=== PATIENT | male | born 1960 | race Caucasian/White ===

== ENCOUNTER 2019-02-23 06:26 | Inpatient (IN) | payer BC, OTHER ==
[2019-02-23] MEDS ORDERED: FUROSEMIDE 10 MG/ML 4 ML VIAL IV STA (07:25)
[2019-02-23] MEDS ORDERED: IPRATROPIUM-ALBUTEROL 3 ML NEB INHALATION STA (07:25)
--- NOTE | 2019-02-23 07:30 | ED ---
SOB HPI - General Chief Complaint: Shortness of Breath Stated Complaint: CHF symptoms Time Seen by Provider: 02/23/19 07:00 Source: patient, RN notes reviewed Mode of arrival: ambulatory Limitations: no limitations - History of Present Illness Initial Comments: This is a 59-year-old male with a history of CHF who is a smoker who just quit 3 weeks ago also history of A. fib who states that he's been having progressively worsening shortness of breath over some time he is not had medications for a couple years nor insurance. He denies any chest pain fevers chills nausea vomiting sweats he has a slight cough with green minimal phlegm-like congestion. He has had lower extremity edema which is getting worse. He denies any palpitations or any other symptoms at this time. MD Complaint: shortness of breath - Related Data Home Medications Medication Instructions Recorded Confirmed Aspirin EC [Ecotrin] 325 mg PO DAILY 02/23/19 02/23/19 Allergies Allergy/AdvReac Type Severity Reaction Status Date / Time No Known Allergies Allergy Verified 02/23/19 07:21 Review of Systems ROS Statement: Those systems with pertinent positive or pertinent negative responses have been documented in the HPI. ROS Other: All systems not noted in ROS Statement are negative. Past Medical History Past Medical History: Atrial Fibrillation, Heart Failure Additional Past Medical History / Comment(s): pneumonia, 07-01-14 NEW ONSET A-FIB History of Any Multi-Drug Resistant Organisms: None Reported Past Surgical History: Appendectomy, Heart Catheterization, Hernia Repair Additional Past Surgical History / Comment(s): HAD HERNIA REPAIR(ABD) Past Anesthesia/Blood Transfusion Reactions: No Reported Reaction Past Psychological History: No Psychological Hx Reported Smoking Status: Current every day smoker Past Alcohol Use History: Occasional Past Drug Use History: None Reported - Past Family History Father Family Medical History: Diabetes Mellitus Additional Family Medical History / Comment(s): DAD IS 76 Mother Additional Family Medical History / Comment(s): AGE 74 HX UNK General Exam - General Exam Comments Initial Comments: This is a well-developed well-nourished awake alert oriented 3 male Limitations: no limitations General appearance: alert, in no apparent distress Head exam: Present: atraumatic, normocephalic, normal inspection Eye exam: Present: normal appearance, PERRL, EOMI. Absent: scleral icterus, conjunctival injection, periorbital swelling ENT exam: Present: normal exam, mucous membranes moist Neck exam: Present: normal inspection, full ROM, other (No stridor JVD or bruits). Absent: tenderness, meningismus, lymphadenopathy Respiratory exam: Present: normal lung sounds bilaterally. Absent: respiratory distress, wheezes, rales, rhonchi, stridor Cardiovascular Exam: Present: tachycardia, irregular rhythm. Absent: systolic murmur, diastolic murmur, rubs, gallop, clicks GI/Abdominal exam: Present: soft, normal bowel sounds. Absent: distended, tenderness, guarding, rebound, rigid Extremities exam: Present: full ROM, normal capillary refill, pedal edema. Absent: tenderness, joint swelling, calf tenderness Back exam: Present: normal inspection Neurological exam: Present: alert, oriented X3, CN II-XII intact Psychiatric exam: Present: normal affect, normal mood Skin exam: Present: warm, dry, intact, normal color. Absent: rash Course Vital Signs 02/23/19 02/23/19 02/23/19 06:32 07:00 07:40 Temperature 97.9 F Pulse Rate 117 H 104 H 108 H Respiratory 22 19 Rate Blood Pressure 174/126 155/125 O2 Sat by Pulse 98 Oximetry 02/23/19 02/23/19 02/23/19 07:47 08:00 09:30 Temperature Pulse Rate 102 H 107 H Respiratory 20 Rate Blood Pressure 160/120 135/116 O2 Sat by Pulse Oximetry 02/23/19 02/23/19 10:30 11:00 Temperature Pulse Rate 91 Respiratory 18 Rate Blood Pressure 153/106 149/101 O2 Sat by Pulse 98 Oximetry - Reevaluation(s) Reevaluation #1: 02/23/19 11:11 Reevaluation the patient after initial treatment reveals some improvement after the nebulizer treatment he is diuresing well after IV Lasix. He still has minimal improvement thus far. Medical Decision Making - Medical Decision Making I did discuss the case with the patient he does demonstrate rapid atrial fibrillation with congestive heart failure and pleural effusions. I did discuss case also with Dr Ray - Lab Data Result diagrams: 02/23/19 07:02 02/23/19 07:02 Lab Results 02/23/19 02/23/19 02/23/19 Range/Units 07:02 07:02 07:02 WBC 6.9 (3.8-10.6) k/uL RBC 5.99 H (4.30-5.90) m/uL Hgb 16.7 (13.0-17.5) gm/dL Hct 54.4 H (39.0-53.0) % MCV 90.9 (80.0-100.0) fL MCH 27.8 (25.0-35.0) pg MCHC 30.6 L (31.0-37.0) g/dL RDW 13.7 (11.5-15.5) % Plt Count 176 (150-450) k/uL Neutrophils % 49 % Lymphocytes % 36 % Monocytes % 9 % Eosinophils % 2 % Basophils % 1 % Neutrophils # 3.3 (1.3-7.7) k/uL Lymphocytes # 2.5 (1.0-4.8) k/uL Monocytes # 0.6 (0-1.0) k/uL Eosinophils # 0.2 (0-0.7) k/uL Basophils # 0.1 (0-0.2) k/uL PT (9.0-12.0) sec INR (<1.2) APTT (22.0-30.0) sec Sodium 141 (137-145) mmol/L Potassium 3.9 (3.5-5.1) mmol/L Chloride 107 (98-107) mmol/L Carbon Dioxide 27 (22-30) mmol/L Anion Gap 7 mmol/L BUN 26 H (9-20) mg/dL Creatinine 0.94 (0.66-1.25) mg/dL Est GFR (CKD-EPI)AfAm >90 (>60 ml/min/1.73 sqM) Est GFR (CKD-EPI)NonAf 89 (>60 ml/min/1.73 sqM) Glucose 72 L (74-99) mg/dL Calcium 8.9 (8.4-10.2) mg/dL Magnesium 1.6 (1.6-2.3) mg/dL Total Bilirubin 1.3 (0.2-1.3) mg/dL AST 41 (17-59) U/L ALT 38 (21-72) U/L Alkaline Phosphatase 68 (38-126) U/L Creatine Kinase 60 (55-170) U/L Troponin I (0.000-0.034) ng/mL NT-Pro-B Natriuret Pep 5640 pg/mL Total Protein 6.0 L (6.3-8.2) g/dL Albumin 3.5 (3.5-5.0) g/dL 02/23/19 02/23/19 Range/Units 07:02 07:02 WBC (3.8-10.6) k/uL RBC (4.30-5.90) m/uL Hgb (13.0-17.5) gm/dL Hct (39.0-53.0) % MCV (80.0-100.0) fL MCH (25.0-35.0) pg MCHC (31.0-37.0) g/dL RDW (11.5-15.5) % Plt Count (150-450) k/uL Neutrophils % % Lymphocytes % % Monocytes % % Eosinophils % % Basophils % % Neutrophils # (1.3-7.7) k/uL Lymphocytes # (1.0-4.8) k/uL Monocytes # (0-1.0) k/uL Eosinophils # (0-0.7) k/uL Basophils # (0-0.2) k/uL PT 12.5 H (9.0-12.0) sec INR 1.2 H (<1.2) APTT 26.2 (22.0-30.0) sec Sodium (137-145) mmol/L Potassium (3.5-5.1) mmol/L Chloride (98-107) mmol/L Carbon Dioxide (22-30) mmol/L Anion Gap mmol/L BUN (9-20) mg/dL Creatinine (0.66-1.25) mg/dL Est GFR (CKD-EPI)AfAm (>60 ml/min/1.73 sqM) Est GFR (CKD-EPI)NonAf (>60 ml/min/1.73 sqM) Glucose (74-99) mg/dL Calcium (8.4-10.2) mg/dL Magnesium (1.6-2.3) mg/dL Total Bilirubin (0.2-1.3) mg/dL AST (17-59) U/L ALT (21-72) U/L Alkaline Phosphatase (38-126) U/L Creatine Kinase (55-170) U/L Troponin I 0.016 (0.000-0.034) ng/mL NT-Pro-B Natriuret Pep pg/mL Total Protein (6.3-8.2) g/dL Albumin (3.5-5.0) g/dL - EKG Data -: EKG Interpreted by Me (Atrial fibrillation with a rapid ventricular response rate of 112 QRS 96 QT) - Radiology Data Radiology results: report reviewed (I did review the imaging and report is evidence of CHF and pleural effusions especially on the left.), image reviewed Critical Care Time Critical Care Time: Yes Critical Care Time: 35 minutes of critical care time which includes initial presentation with history physical labs x-rays several reevaluation the patient responsive therapy discuss with the patient regarding the findings discussion with the admitting physician admission orders and documentation of the above Disposition Clinical Impression: Systolic congestive heart failure, Congestive heart failure, Acute exacerbation of chronic obstructive airways disease, Atrial fibrillation with RVR Disposition: ADMITTED IP TO THIS [facility] Condition: Stable Referrals: None,Stated [Primary Care Provider] - 1-2 days
[2019-02-23] MEDS ORDERED: HEPARIN SODIUM,PORCINE 5,000 UNIT/ML 1 ML VIAL IV PRN (07:31)
[2019-02-23] MEDS ORDERED: HEPARIN SODIUM,PORCINE 5,000 UNIT/ML 1 ML VIAL IV ONE (07:31)
[2019-02-23 07:35] LABS: Basophils # (A) 0.1 k/uL (0-0.2); Basophils % (A) 1 %; Eosinophils # (A) 0.2 k/uL (0-0.7); Eosinophils % (A) 2 %; HCT 54.4 % (39.0-53.0); HGB 16.7 gm/dL (13.0-17.5); Lymphocytes # (A) 2.5 k/uL (1.0-4.8); Lymphocytes % (A) 36 %; MCH 27.8 pg (25.0-35.0); MCHC 30.6 g/dL (31.0-37.0); MCV 90.9 fL (80.0-100.0); Mean Platelet Volume 7.2; Monocytes # (A) 0.6 k/uL (0-1.0); Monocytes % (A) 9 %; Neutrophils # (A) 3.3 k/uL (1.3-7.7); Neutrophils % (A) 49 %; Platelet Count 176 k/uL (150-450); RBC 5.99 m/uL (4.30-5.90); RDW 13.7 % (11.5-15.5); WBC 6.9 k/uL (3.8-10.6)
[2019-02-23] MEDS: DILTIAZEM 125 MG in SODIUM CHLORIDE 0.9% 100 ML IV SCH (07:46)
[2019-02-23] MEDS: HEPARIN SOD,PORK IN 0.45% NACL 25,000 UNIT in 0.45% NACL 1 250ML.BAG IV SCH (07:47)
[2019-02-23 07:48] LABS: INR 1.2 (<1.2); Partial Thromboplastin Time 26.2 sec (22.0-30.0); Prothrombin Time 12.5 sec (9.0-12.0)
[2019-02-23 07:53] LABS: ALT 38 U/L (21-72); AST 41 U/L (17-59); Albumin 3.5 g/dL (3.5-5.0); Alkaline Phosphatase 68 U/L (38-126); Anion Gap 7 mmol/L; Blood Urea Nitrogen 26 mg/dL (9-20); Calcium 8.9 mg/dL (8.4-10.2); Carbon Dioxide 27 mmol/L (22-30); Chloride 107 mmol/L (98-107); Creatine Kinase 60 U/L (55-170); Glucose 72 mg/dL (74-99); Magnesium 1.6 mg/dL (1.6-2.3); Potassium 3.9 mmol/L (3.5-5.1); Sodium 141 mmol/L (137-145); Total Bilirubin 1.3 mg/dL (0.2-1.3)
--- NOTE | 2019-02-23 08:16 | XR ---
EXAMINATION TYPE: XR chest 2V DATE OF EXAM: 02/23/2019 COMPARISON: 07/01/2014 TECHNIQUE: PA and lateral views submitted. HISTORY: Shortness of breath FINDINGS: Diffuse interstitial pattern with bilateral consolidation and small effusion. Heart is enlarged. Arth ropathy of the shoulders. No pneumothorax. Atherosclerotic change aorta. IMPRESSION: 1. Correlate for CHF.
[2019-02-23] MEDS ORDERED: ASPIRIN 325 MG TAB PO STA (11:17)
--- NOTE | 2019-02-23 12:38 | P.HPIM ---
History of Present Illness H&P Date: 02/23/19 Chief Complaint: Shortness of breath This is a 59-year-old white male who came into the emergency room because of shortness of breath. His shortness of breath has been going on for 2 weeks. Since her shortness of breath did not improve, he reported to the emergency room. He denies palpitations, no heart racing, no dizziness no loss of consciousness. He denies chest pain, no subjective fever no chills, no abdominal pain. He denies hematuria, no dysuria no hematemesis nor hematochezia and no cough. He has not been taking his medications for the past 2 years because he ran out of prescriptions and had a change in his insurance. At the time of examination patient does not appear to be in distress. Review of Systems 10 systems reviewed pertinent positive and negative findings as in HPI. No chest pain, + shortness of breath Past Medical History Past Medical History: Atrial Fibrillation, Heart Failure, Hypertension, Pneumonia Additional Past Medical History / Comment(s): 07-01-14 NEW ONSET A-FIB History of Any Multi-Drug Resistant Organisms: None Reported Past Surgical History: Appendectomy, Heart Catheterization, Hernia Repair Additional Past Surgical History / Comment(s): 2013 cardiac cath, PENELOPE/CVN, abdominal hernia repair. Past Anesthesia/Blood Transfusion Reactions: No Reported Reaction Smoking Status: Former smoker - Past Family History Father Family Medical History: Diabetes Mellitus Additional Family Medical History / Comment(s): DAD IS 81 yrs old Mother Family Medical History: No Reported History Additional Family Medical History / Comment(s): Mother is healthy. She is 79yrs old. Medications and Allergies Home Medications Medication Instructions Recorded Confirmed Type Aspirin EC [Ecotrin] 325 mg PO DAILY 02/23/19 02/23/19 History Allergies Allergy/AdvReac Type Severity Reaction Status Date / Time No Known Allergies Allergy Verified 02/23/19 07:21 Physical Exam Vitals: Vital Signs Temp Pulse Resp BP Pulse Ox 02/23/19 11:37 98 16 152/112 95 02/23/19 11:00 91 18 149/101 98 02/23/19 10:30 153/106 02/23/19 09:30 135/116 02/23/19 08:00 107 H 20 160/120 02/23/19 07:47 102 H 02/23/19 07:40 108 H 02/23/19 07:00 104 H 19 155/125 02/23/19 06:32 97.9 F 117 H 22 174/126 98 Intake and Output 02/22/19 02/23/19 02/23/19 22:59 06:59 14:59 Other: Weight 99.79 kg Constitutional: No acute distress, conversant, pleasant Eyes: Anicteric sclerae, moist conjunctiva, PERRLA ENMT: NC/AT Neck:Supple, no masses, or JVD, No carotid bruits Lungs: Decreased breath sounds, few crackles bibasilar, no wheezing Cardiovascular: Heart regular in rate and rhythm, No murmurs, gallops, or rubs 2+ peripheral edema Abdominal: Soft Nontender, nom distended, no guarding, no rebound or rigidity, Normoactive bowel sounds, No palpable mass Skin: Normal temperature, tone, texture, turgor, No induration Extremities:No digital cyanosis No clubbing, No calf tenderness 2+ bilateral lower extremity edema Psychiatric: Alert and oriented to person, place and time, Appropriate affect Intact judgement Neuro: Muscles Strength 5/5 in all 4 extremities, Sensation to light touch grossly present throughout, Cranial nerves II-XII grossly intact. No focal sensory deficits Results CBC & Chem 7: 02/23/19 07:02 02/23/19 07:02 Labs: Abnormal Lab Results - Last 24 Hours (Table) 02/23/19 02/23/19 02/23/19 Range/Units 07:02 07:02 07:02 RBC 5.99 H (4.30-5.90) m/uL Hct 54.4 H (39.0-53.0) % MCHC 30.6 L (31.0-37.0) g/dL PT 12.5 H (9.0-12.0) sec INR 1.2 H (<1.2) BUN 26 H (9-20) mg/dL Glucose 72 L (74-99) mg/dL Total Protein 6.0 L (6.3-8.2) g/dL Assessment and Plan Plan: 1. Paroxysmal atrial fibrillation with RVR: On Cardizem drip, on heparin drip, now on oral metoprolol. Patient previously was on Xarelto 2 years ago. Appreciate cardiology input. Continue to check cardiac enzymes, obtain a d- dimer. 2. Acute on chronic congestive heart failure unknown if it's systolic or diastolic: Started IV Lasix 40 mg every 8 hours, lisinopril and Aldactone. Monitor daily weight, electrolytes and renal function, cardiology following, obtain a 2-D echo 3. Essential hypertension: Not on medications as an outpatient, now on lisinopril metoprolol Aldactone and Lasix, monitor. 4. Tobacco use without evidence of withdrawal: He quit smoking 3 weeks ago, conservative treatment and monitor 5. DVT prophylaxis, heparin drip
[2019-02-23] MEDS: METOPROLOL TARTRATE 25 MG TAB PO SCH ×2 (12:57→20:01)
[2019-02-23] MEDS: SPIRONOLACTONE 25 MG TAB PO SCH (12:57)
[2019-02-23] MEDS: LISINOPRIL 5 MG TAB PO SCH ×2 (12:57→20:02)
[2019-02-23 13:59] LABS: D-Dimer 0.73 mg/L FEU (<0.60); Partial Thromboplastin Time 47.3 sec (22.0-30.0)
--- NOTE | 2019-02-23 15:09 | CONS ---
CONSULTATION Mr. Dooley is a 59-year-old male with known history of severe nonischemic cardiomyopathy diagnosed in 2013 and atrial fibrillation. He saw Dr. Gutierrez at that time but has not seen anybody in over 4 years, has not taken any medication in over 2 years. He presented with symptoms of progressive dyspnea, peripheral edema, PND and orthopnea. The patient has stopped all his medication and cannot recall what he was supposed to be on. He underwent cardioversion in July of 2014 with voodoo of normal sinus rhythm, but I am not sure if he stayed in sinus mechanism afterward. He denies any chest pain. He denies any dizziness or syncope. He has not checked his weight, so it is unclear if he has gained any weight. He stopped smoking 3 weeks ago. He has a history of hypertension. He is nondiabetic. HOME MEDICATION: Aspirin. REVIEW OF SYSTEMS: RESPIRATORY SYSTEM: He has dyspnea on exertion and cough. History of chronic tobacco use. GI SYSTEM: No recent GI bleeding. No peptic ulcer disease. SYSTEM: No dysuria or hematuria. NERVOUS SYSTEM: No stroke or seizure. PHYSICAL EXAMINATION: He is a 59-year-old male, alert, oriented, in no apparent distress. Blood pressure 152/112 with a heart rate in the 90s to 100, on IV Cardizem. HEAD: Normocephalic. Eyes: Sclerae anicteric. NECK: Increased jugular venous pressure. LUNGS: Crackles at the bases. HEART: Irregularly irregular. S1, S2. No S3. No rub. ABDOMEN: Soft, nontender. Positive bowel sounds. No organomegaly. EXTREMITIES: Plus 3 edema bilaterally. LAB DATA: BUN and creatinine of 26 and 0.94. NT-proBNP of 5640. Potassium 3.9, white blood cells 6.9, hemoglobin 16.7. EKG reveals atrial fibrillation with nonspecific ST-T wave changes, rate of 112. Chest x-ray shows evidence of heart failure. IMPRESSION: 1. Congestive heart failure in a patient with known history of severe nonischemic cardiomyopathy by cardiac catheterization in 2013. 2. Atrial fibrillation was diagnosed in 2013 with rapid ventricular response. 3. Prior history of smoking. 4. History of hypertension. 5. Noncompliance. RECOMMENDATIONS: I have discussed with the patient the gravity of his disease and the importance of compliance and followup. He will be started on IV Lasix, beta huber, TERESA inhibitor and Aldactone. Echocardiogram with Doppler will be obtained. His IV heparin started. He will subsequently be switched to oral anticoagulation. Depending on results of testing, further recommendations will be made. Thank you for this consult. Will follow with you. MEGAN / JUN: [id number] /
[2019-02-23] MEDS: FUROSEMIDE 10 MG/ML 4 ML VIAL IV SCH (17:02)
[2019-02-24] MEDS: FUROSEMIDE 10 MG/ML 4 ML VIAL IV SCH ×4 (05:50→23:01)
[2019-02-24] MEDS: HEPARIN SOD,PORK IN 0.45% NACL 25,000 UNIT in 0.45% NACL 1 250ML.BAG IV SCH ×2 (05:50→09:40)
[2019-02-24 06:38] LABS: Basophils # (A) 0.1 k/uL (0-0.2); Basophils % (A) 1 %; Eosinophils # (A) 0.2 k/uL (0-0.7); Eosinophils % (A) 2 %; HCT 53.1 % (39.0-53.0); HGB 16.3 gm/dL (13.0-17.5); Hypochromasia Slight; Lymphocytes # (A) 2.3 k/uL (1.0-4.8); Lymphocytes % (A) 29 %; MCH 27.9 pg (25.0-35.0); MCHC 30.7 g/dL (31.0-37.0); MCV 91.1 fL (80.0-100.0); Mean Platelet Volume 7.6; Monocytes # (A) 0.6 k/uL (0-1.0); Monocytes % (A) 8 %; Neutrophils # (A) 4.6 k/uL (1.3-7.7); Neutrophils % (A) 59 %; Platelet Count 158 k/uL (150-450); RBC 5.83 m/uL (4.30-5.90); RDW 14.1 % (11.5-15.5); WBC 7.8 k/uL (3.8-10.6)
[2019-02-24 08:27] LABS: Albumin 3.4 g/dL (3.5-5.0); Calcium 8.8 mg/dL (8.4-10.2); Potassium 4.3 mmol/L (3.5-5.1); Total Bilirubin 1.4 mg/dL (0.2-1.3); Total Protein 5.7 g/dL (6.3-8.2)
--- NOTE | 2019-02-24 08:51 | ECHOF ---
Referral Reason:cm MEASUREMENTS -------- HEIGHT: 182.9 cm WEIGHT: 99.8 kg BP: 152/112 RVIDd: 3.6 cm (< 3.3) IVSd: 1.8 cm (0.6 - 1.1) LVIDd: 4.7 cm (3.9 - 5.3) LVPWd: 1.7 cm (0.6 - 1.1) IVSs: 2.3 cm LVIDs: 3.7 cm LVPWs: 1.9 cm LAESV Index (A-L): 53.19 ml/m IVSd: 1.8 cm (0.6 - 1.1) LVIDd: 5.1 cm (3.9 - 5.3) LVPWd: 1.7 cm (0.6 - 1.1) EDV(Teich): 123 ml Ao Diam: 2.6 cm (2.0 - 3.7) AV Cusp: 1.7 cm (1.5 - 2.6) LA Diam: 5.4 cm (2.7 - 3.8) MV EXCURSION: 16.594 mm (> 18.000) MV EF SLOPE: 110 mm/s (70 - 150) EPSS: 1.8 cm RAP: 20.00 mmHg RVSP: 54.12 mmHg FINDINGS -------- Atrial fibrillation. This was a technically good study. The left ventricular size is normal. There is severe concentric left ventricular hypertrophy. Ove rall left ventricular systolic function is severely impaired with, an EF < 20%. The right ventricle is mildly enlarged. LA is severely dilated >40 ml/m2 The right atrium is mildly enlarged. Interatrial and interventricular septum intact. Aortic valve is trileaflet and is mildly thickened. The mitral valve leaflets are mildly thickened. Mild mitral annular calcification present. Mild-t o-moderate mitral regurgitation is present. Mild tricuspid regurgitation present. There is moderate pulmonary hypertension. The right ventric ular systolic pressure, as measured by Doppler, is 54.12mmHg. Trace/mild (physiologic) pulmonic regurgitation. The aortic root size is normal. The inferior vena cava is dilated with no significant inspiratory collapse which is consistent estima arnav right atrial pressure of >20 mmHg. There is a trivial pericardial effusion present. CONCLUSIONS -------- 1. Atrial fibrillation. 2. This was a technically good study. 3. The left ventricular size is normal. 4. There is severe concentric left ventricular hypertrophy. 5. Overall left ventricular systolic function is severely impaired with, an EF < 20%. 6. The right ventricle is mildly enlarged. 7. LA is severely dilated >40 ml/m2 8. The right atrium is mildly enlarged. 9. Interatrial and interventricular septum intact. 10. Aortic valve is trileaflet and is mildly thickened. 11. The mitral valve leaflets are mildly thickened. 12. Mild mitral annular calcification present. 13. [id number]-[id number] mitral regurgitation is present. 14. Mild tricuspid regurgitation present. 15. There is moderate pulmonary hypertension. 16. The right ventricular systolic pressure, as measured by Doppler, is 54.12mmHg. 17. Trace/mild (physiologic) pulmonic regurgitation. 18. The aortic root size is normal. 19. The inferior vena cava is dilated with no significant inspiratory collapse which is consistent es timated right atrial pressure of >20 mmHg. 20. There is a trivial pericardial effusion present. AUDIO VISUAL DIRECTOR: Angella Quesada RDCS
[2019-02-24] MEDS ORDERED: ASPIRIN 325 MG TAB PO SCH (09:00)
[2019-02-24] MEDS: METOPROLOL TARTRATE 25 MG TAB PO SCH ×2 (09:39→21:16)
[2019-02-24] MEDS: LISINOPRIL 5 MG TAB PO SCH ×2 (09:39→21:16)
[2019-02-24] MEDS: SPIRONOLACTONE 25 MG TAB PO SCH (09:40)
--- NOTE | 2019-02-24 11:12 | PN ---
PROGRESS NOTE Mr. Dooley is a 59-year-old male, prior history of cardiomyopathy who presented with symptoms of progressive dyspnea, CHF, and symptoms congestive heart failure. He was noted to be in atrial fibrillation. He has underwent cardioversion in the past. He is feeling better today. His breathing is better. He is denying any chest pain. No dizziness. He denies any palpitation. He continued be on Lasix 40 mg IV q.8 hours, IV heparin, lisinopril 5 mg twice a day, metoprolol tartrate 25 mg twice a day and spironolactone 25 mg daily. His diltiazem was on hold because of a low heart rate. PHYSICAL EXAMINATION: Blood pressure 145/90 with a heart rate in 60s. LUNGS: Clear. Heart irregularly irregular, S1, S2. No S3. No rub. ABDOMEN: Soft, nontender. EXTREMITIES: +1 edema, improved compared to yesterday. Echocardiogram revealed ejection fraction less than 20% with mild to moderate mitral regurgitation and mild tricuspid regurgitation. LAB DATA: Lab data revealed a BUN and creatinine 32 and 1.17, potassium 4.3. Hemoglobin of 16.3. IMPRESSION: 1. Congestive heart failure with severe nonischemic cardiomyopathy. 2. Atrial fibrillation. 3. History of smoking. 4. Noncompliance. RECOMMENDATION: We will continue on the present therapy at this time. I will switch him to oral anticoagulation. Once he is anticoagulated and stable we will see if he is a candidate to restore sinus mechanism to see if we can improve the left ventricle systolic function. MMODL / IJN: [id number] /
[2019-02-24] MEDS: APIXABAN 5 MG TAB PO SCH ×2 (11:21→21:16)
[2019-02-24 12:22] VITALS: BMI 30.2
--- NOTE | 2019-02-24 15:19 | P.PN ---
Subjective Progress Note Date: 02/24/19 (Delayed charting patient seen at 1030) Principal diagnosis: shortness of breath Patient is a 59-year-old male past medical history of congestive heart failure, A. fib, hypertension, and recent ongoing tobacco abuse who presented to the ER with complaints of shortness of breath. In the ER he was found to be tachycardic with a pulse of 117 and had elevated blood pressure 174/126. Initial laboratory analysis showed elevated BNP at 5640. Initial chest x-ray showed interstitial pattern with bilateral consolidation small pleural effusion consistent with congestive heart failure. EKG demonstrated A. fib with rapid ventricular response. He was started on Lasix, Cardizem drip, and heparin drip. He admitted for further monitoring. Cardiology was consulted. He underwent an echocardiogram on 02/23 which showed an ejection fraction of less than 20% and moderate pulmonary hypertension. He was transitioned off the Cardizem drip and onto Lopressor. Heparin was discontinued and patient transitioned to eliquis. He was also started on lisinopril and spironolactone. He continued to progress well. Patient seen and examined at bedside. He reports that his breathing is better than admission, lower extremity edema has not improved, no nausea, no vomiting, no chest pain. Social stressors include no insurance and no PCP. C/O clear sputum production and feeling as though he cannot cough everything up since stopping smoking. D/W pt continue to monitor, possible CT chest Objective - Vital Signs Vital signs: Vital Signs Temp 97.7 F 02/24/19 11:32 Pulse 77 02/24/19 11:32 Resp 18 02/24/19 11:32 BP 111/67 02/24/19 11:32 Pulse Ox 99 02/24/19 11:32 Intake & Output 02/23/19 02/24/19 02/24/19 18:59 06:59 18:59 Intake Total 462 312.25 730 Balance 462 312.25 730 Weight 100.9 kg 100.9 kg Intake: Intake, IV Titration 75.25 250 Amount Diltiazem 125 mg In 75.25 Sodium Chloride 0.9% 100 ml @ 5 MG/HR 5 mls/hr IV .Q24H [facility] Rx#:[id number] Heparin Sod,Pork in 0.45% 250 NaCl 25,000 unit In 0.45 % NaCl 1 250ml.bag @ 10. 021 UNITS/KG/HR 10 mls/hr IV .Q24H [facility] Rx#: [id number] Oral [phone] Other: # Voids 1 1 - Exam General: non toxic, no distress, appears older than stated age Derm: warm, dry, + tattoos Head: atraumatic, normocephalic, symmetric Eyes: EOMI, no lid lag, anicteric sclera Mouth: no lip lesion, mucus membranes moist Cardiovascular: S1-S2 irregular, tachycardic, no murmur, positive posterior tibial pulse bilateral, Lungs: Crackles bilateral bases, no rhonchi, no rales , no accessory muscle use Abdominal: soft, nontender to palpation, no guarding, no appreciable organomegaly Ext: no gross muscle atrophy, 2+ edema bilateral lower extremities, no contractures Neuro: CN II-XI grossly intact, no focal neuro deficits Psych: Alert, oriented, appropriate affect - Labs CBC & Chem 7: 02/24/19 06:28 02/24/19 06:28 Labs: Abnormal Lab Results - Last 24 Hours (Table) 02/24/19 02/24/19 02/24/19 Range/Units 06:28 06:28 06:28 Hct 53.1 H (39.0-53.0) % MCHC 30.7 L (31.0-37.0) g/dL APTT 46.4 H (22.0-30.0) sec Chloride 108 H (98-107) mmol/L BUN 32 H (9-20) mg/dL Glucose 129 H (74-99) mg/dL Total Bilirubin 1.4 H (0.2-1.3) mg/dL Total Protein 5.7 L (6.3-8.2) g/dL Albumin 3.4 L (3.5-5.0) g/dL Assessment and Plan Assessment: Acute exacerbation of systolic congestive heart failure, ejection fraction less than 20% -Continue with Lasix IV twice daily, strict I's and O's, daily weight, low sodium diet -Cardiology recommendations appreciated -Continue with metoprolol and lisinopril -Check lipid profile, await cardiology input for further ischemic evaluation Atrial fibrillation with rapid ventricular response - Off cardizem - metoprolol - on eliquis may be an issue with no insurance - Tele Recent tobacco abuse - continued cessation - monitor for improvement in sputum HTN - urngency on arrival, now controlled - continue meds as outline above - follow BP DVT prophylaxis: isis Discussed with: Patient, nursing Anticipated discharge: 24-[address]: home A total of 45 minutes was spent on the care of this complex patient more than 50% of the time was spent in counseling and care coordination.
[2019-02-24] MEDS: DILTIAZEM 125 MG in SODIUM CHLORIDE 0.9% 100 ML IV SCH (23:04)
[2019-02-25 06:32] LABS: Basophils # (A) 0.1 k/uL (0-0.2); Basophils % (A) 1 %; Eosinophils # (A) 0.2 k/uL (0-0.7); Eosinophils % (A) 2 %; HCT 55.7 % (39.0-53.0); HGB 16.7 gm/dL (13.0-17.5); Hypochromasia Slight; Lymphocytes # (A) 2.8 k/uL (1.0-4.8); Lymphocytes % (A) 35 %; MCH 27.3 pg (25.0-35.0); MCHC 29.9 g/dL (31.0-37.0); MCV 91.3 fL (80.0-100.0); Mean Platelet Volume 7.1; Monocytes # (A) 0.6 k/uL (0-1.0); Monocytes % (A) 8 %; Neutrophils % (A) 50 %; Platelet Count 161 k/uL (150-450); RDW 13.7 % (11.5-15.5); WBC 7.9 k/uL (3.8-10.6)
[2019-02-25 07:11] LABS: Albumin 3.5 g/dL (3.5-5.0); Calcium 8.9 mg/dL (8.4-10.2)
[2019-02-25] MEDS: APIXABAN 5 MG TAB PO SCH ×2 (10:05→20:52)
[2019-02-25] MEDS: SPIRONOLACTONE 25 MG TAB PO SCH (10:05)
[2019-02-25] MEDS: METOPROLOL TARTRATE 25 MG TAB PO SCH ×2 (10:05→20:52)
[2019-02-25] MEDS: LISINOPRIL 5 MG TAB PO SCH (10:06)
[2019-02-25] MEDS: FUROSEMIDE 10 MG/ML 4 ML VIAL IV SCH ×3 (10:06→22:55)
--- NOTE | 2019-02-25 10:38 | PN ---
PROGRESS NOTE Mr. Dooley is a 59-year-old male with a history of atrial fibrillation, severe cardiomyopathy, who presented with worsening congestive heart failure with severe systolic dysfunction. He is feeling better today. His breathing is better. He has not been ambulating. He is denying any chest pain. No dizziness. No palpitations. Continued to be on IV Lasix. He has lost weight. In addition to the IV Lasix, he is on lisinopril 5 mg twice a day, metoprolol tartrate 25 mg twice a day, spironolactone 25 mg daily, and Eliquis 5 mg twice a day. PHYSICAL EXAMINATION: Blood pressure 144/99 with a heart rate in the 80s. LUNGS no rales. HEART irregularly irregular, S1, S2. No S3. No rub with a systolic murmur. ABDOMEN: Soft, nontender. EXTREMITIES: +2 edema. LAB DATA: BUN and creatinine of 33 and 1.16. IMPRESSION: 1. Congestive heart failure with severe systolic dysfunction. 2. Atrial fibrillation. 3. Prior history of noncompliance. 4. History of smoking. RECOMMENDATION: I will increase the dose of his lisinopril. Continue on the present therapy. Follow his renal function. I will continue on IV Lasix for now. If he remains stable, we may be able to switch him to oral in the next 24 to 48 hours. MMODL / IJN: [id number] /
--- NOTE | 2019-02-25 11:24 | P.PN ---
Subjective Progress Note Date: 02/25/19 Principal diagnosis: shortness of breath Patient is a 59-year-old male past medical history of congestive heart failure, A. fib, hypertension, and recent ongoing tobacco abuse who presented to the ER with complaints of shortness of breath. In the ER he was found to be tachycardic with a pulse of 117 and had elevated blood pressure 174/126. Initial laboratory analysis showed elevated BNP at 5640. Initial chest x-ray showed interstitial pattern with bilateral consolidation small pleural effusion consistent with congestive heart failure. EKG demonstrated A. fib with rapid ventricular response. He was started on Lasix, Cardizem drip, and heparin drip. He admitted for further monitoring. Cardiology was consulted. He underwent an echocardiogram on 02/23 which showed an ejection fraction of less than 20% and moderate pulmonary hypertension. He was transitioned off the Cardizem drip and onto Lopressor. Heparin was discontinued and patient transitioned to eliquis. He was also started on lisinopril and spironolactone. He continued to progress well. Patient seen and examined at bedside. Patient's main concern today is left- sided scrotal pain. He also notices edema that appears to be gravity dependent. We discussed that the edema is likely secondary to his fluid overload state. However he is concerned because he is feeling a pulling and a sharp pain in the left left scrotal area. He states that his breathing is better however he is still having edema. I encouraged him to get up and walk around the floor today. Objective - Vital Signs Vital signs: Vital Signs Temp 97.7 F 02/25/19 08:00 Pulse 85 02/25/19 08:00 Resp 18 02/25/19 08:00 BP 142/96 02/25/19 08:00 Pulse Ox 94 L 02/25/19 08:00 Intake & Output 02/24/19 02/25/19 02/25/19 18:59 06:59 18:59 Intake Total 1090 240 Balance 1090 240 Weight 100.9 kg 99.3 kg Intake: Intake, IV Titration 250 Amount Heparin Sod,Pork in 0.45% 250 NaCl 25,000 unit In 0.45 % NaCl 1 250ml.bag @ 10. 021 UNITS/KG/HR 10 mls/hr IV .Q24H BERNARD Rx#: [id number] Oral 840 240 Other: # Voids 1 1 - Exam General: non toxic, no distress, appears older than stated age Derm: warm, dry, + tattoos Head: atraumatic, normocephalic, symmetric Eyes: EOMI, no lid lag, anicteric sclera Mouth: no lip lesion, mucus membranes moist Cardiovascular: S1-S2 irregular, tachycardic, no murmur, positive posterior ti bial pulse bilateral, Lungs: Clear to auscultation bilateral, no rhonchi, no rales , no accessory m uscle use Abdominal: soft, nontender to palpation, no guarding, no appreciable organomegaly Ext: no gross muscle atrophy, 2+ edema bilateral lower extremities, no contractures, Asif wraps in place Neuro: CN II-XI grossly intact, no focal neuro deficits Psych: Alert, oriented, appropriate affect - Labs CBC & Chem 7: 02/25/19 05:59 02/25/19 05:59 Labs: Abnormal Lab Results - Last 24 Hours (Table) 02/25/19 02/25/19 Range/Units 05:59 05:59 RBC 6.10 H (4.30-5.90) m/uL Hct 55.7 H (39.0-53.0) % MCHC 29.9 L (31.0-37.0) g/dL Carbon Dioxide 34 H (22-30) mmol/L BUN 33 H (9-20) mg/dL Total Protein 6.0 L (6.3-8.2) g/dL HDL Cholesterol 38 L (40-60) mg/dL Assessment and Plan Assessment: Acute exacerbation of systolic congestive heart failure, ejection fraction less than 20% -Continue with Lasix IV twice daily, strict I's and O's, daily weight, low sodium diet -Cardiology recommendations appreciated -Continue with metoprolol and lisinopril -Lipid profile normal -had cardiac cath 08/23 which showed normal coronary arteries Atrial fibrillation with rapid ventricular response - Off cardizem - metoprolol - on eliquis may be an issue with no insurance - Tele Left scrotal pain and swelling - consult urology - pain control - d/w patient trying to elevate scrotum HTN - urngency on arrival, now controlled - continue meds as outline above - follow BP Recent tobacco abuse - continued cessation - monitor for improvement in sputum DVT prophylaxis: eliquis Discussed with: Patient, nursing Anticipated discharge: [address]: home A total of 25 minutes was spent on the care of this complex patient more than 50% of the time was spent in counseling and care coordination.
[2019-02-25] MEDS: LISINOPRIL 10 MG TAB PO SCH (20:52)
[2019-02-26 06:54] LABS: Calcium 9.1 mg/dL (8.4-10.2); Magnesium 1.7 mg/dL (1.6-2.3); Potassium 4.2 mmol/L (3.5-5.1)
[2019-02-26] MEDS: APIXABAN 5 MG TAB PO SCH (08:43)
[2019-02-26] MEDS: LISINOPRIL 10 MG TAB PO SCH (08:43)
[2019-02-26] MEDS: METOPROLOL TARTRATE 25 MG TAB PO SCH (08:43)
[2019-02-26] MEDS: FUROSEMIDE 10 MG/ML 4 ML VIAL IV SCH (08:43)
[2019-02-26] MEDS: SPIRONOLACTONE 25 MG TAB PO SCH (08:43)
--- NOTE | 2019-02-26 10:09 | PN ---
PROGRESS NOTE Mr. Dooley is a 59-year-old male with a history of cardiomyopathy who presented with worsening congestive heart failure. He had stopped his medication. He is feeling better today. He is ambulating. He is denying any symptoms of chest pain. He denies any dizziness or palpitation. He denies any nausea. He has no cough. His activity is better. He continues to be at this time on Eliquis 5 mg twice a day, furosemide 40 mg IV q.8 hours, lisinopril 10 mg twice a day, metoprolol tartrate 25 mg twice a day, Aldactone 25 mg daily. PHYSICAL EXAMINATION: Blood pressure 124/70 with the heart rate in the 80s. LUNGS: Clear. HEART: Irregular, irregular. S1, S2. No S3 with systolic murmur. No diastolic murmur. No rub. ABDOMEN: Soft, nontender. EXTREMITIES: With trace edema. LAB DATA: Lab data revealed BUN and creatinine of 32 and 1.1, potassium 4.2. IMPRESSION: 1. Symptoms of congestive heart failure with evidence of systolic dysfunction with nonischemic cardiomyopathy. 2. Atrial fibrillation. 3. History of smoking. 4. Prior history of cardiomyopathy. RECOMMENDATION: I will switch him to oral diuretics, increase his level of activity. If he remains stable I would expect he should be able to be discharged home in the next 24 hours. MMODL / IJN: [id number] /
[2019-02-26 10:36] VITALS: BP 124/85; PULSE 94; RESP 20; TEMP 96.9
--- NOTE | 2019-02-26 11:29 | P.DS ---
Providers Date of admission: 02/23/19 11:17 Expected date of discharge: 02/26/19 Attending physician: Justin Ray MD Consults: 02/23/19 11:17 Consult Physician Routine Consulting Provider: Anette Temple Consult Reason/Comments: Rapid A. fib, CHF Do you want consulting provider notified?: Yes 02/25/19 11:20 Consult Physician Routine Consulting Provider: Marlo Lomas Consult Reason/Comments: scrotal swelling and pain Do you want consulting provider notified?: Yes Primary care physician: Stated None Hospital Course: Discharge Diagnosis: Acute exacerbation of systolic congestive heart failure A. fib with RVR Scrotal swelling Hypertension Recent tobacco abuse Hospital Course: Patient is a 59-year-old male past medical history of congestive heart failure, A. fib, hypertension, and recent ongoing tobacco abuse who presented to the ER with complaints of shortness of breath. In the ER he was found to be tachycardic with a pulse of 117 and had elevated blood pressure 174/126. Initial laboratory analysis showed elevated BNP at 5640. Initial chest x-ray showed interstitial pattern with bilateral consolidation small pleural effusion consistent with congestive heart failure. EKG demonstrated A. fib with rapid ventricular response. He was started on Lasix, Cardizem drip, and heparin drip. He admitted for further monitoring. Cardiology was consulted. He underwent an echocardiogram on 02/23 which showed an ejection fraction of less than 20% and moderate pulmonary hypertension. He was transitioned off the Cardizem drip and onto Lopressor. Heparin was discontinued and patient transitioned to eliquis. He was also started on lisinopril and spironolactone. He continued to progress well. He was diuresising well. He was determined stable for discharge. He will be on lisinopril, metoprolol, lasix, aldactone, and eliquis. He will see Dr. Temple in 2 weeks and was given the number for [facility]. He would benefit from recheck on his kidney function in 1-2 weeks. Patient seen and examined at bedside. Breathing is better and he can manage at home. Lower extremity edema lmproved. No nausea. no vomiting. Vital signs reviewed and stable. General: non toxic, no distress, appears at stated age Derm: warm, dry Head: atraumatic, normocephalic, symmetric Eyes: EOMI, no lid lag, anicteric sclera Mouth: no lip lesion, mucus membranes moist Cardiovascular: S1S2 reg, no murmur, positive posterior tibial pulse bilateral, Lungs: CTA bilateral, no rhonchi, no rales , no accessory muscle use Abdominal: soft, nontender to palpation, no guarding, no appreciable organomegaly Ext: no gross muscle atrophy, 2+ edema, no contractures Neuro: CN II-XI grossly intact, no focal neuro deficits Psych: Alert, oriented, appropriate affect A total of 35 minutes of time were spent preparing this complex discharge summary . Pertinent Studies: echo- EF <20% Patient Condition at Discharge: Stable Plan - Discharge Summary Discharge Rx Participant: Yes New Discharge Prescriptions: New Spironolactone [Aldactone] 25 mg PO DAILY #90 tab Furosemide [Lasix] 40 mg PO BID #180 tab Metoprolol Tartrate [Lopressor] 25 mg PO BID #180 tab Lisinopril [Zestril] 10 mg PO BID #180 tab Apixaban [Eliquis] 5 mg PO BID #60 tab Discontinued Aspirin EC [Ecotrin] 325 mg PO DAILY Discharge Medication List Apixaban [Eliquis] 5 mg PO BID #60 tab 02/26/19 [Rx] Furosemide [Lasix] 40 mg PO BID #180 tab 02/26/19 [Rx] Lisinopril [Zestril] 10 mg PO BID #180 tab 02/26/19 [Rx] Metoprolol Tartrate [Lopressor] 25 mg PO BID #180 tab 02/26/19 [Rx] Spironolactone [Aldactone] 25 mg PO DAILY #90 tab 02/26/19 [Rx] Follow up Appointment(s)/Referral(s): Anette Temple MD [STAFF PHYSICIAN] - 2 Weeks None,Stated [Primary Care Provider] - 1-2 days [facility] - 3 Days Activity/Diet/Wound Care/Special Instructions: Heart health diet, 1500 fluid restriction Activity as tolerated
--- NOTE | 2019-02-26 20:24 | P.GSCN ---
History of Present Illness Consult date: 02/26/19 Reason for Consult: Scrotal swelling History of present illness: The patient is a 59-year-old female admitted on 02/23 for evaluation of edema, orthopnea and dyspnea. He has a history of atrial fibrillation and severe nonischemic cardiomyopathy. He apparently was unable to afford his medications when his insurance ran out. He was noted to have congestive heart failure at the time of admission and has been treated with diuretics with improvement. I was asked to see the patient due to what he described as scrotal swelling and slight discomfort in the region of the left groin for the last 2 weeks. The patient says that this was mild and described as an aching feeling. There was no actual testicular pain. The patient says that the discomfort has actually improved since he was started on his diuretics. He has no history of orchitis or scrotal injury. He denies any bulge in the region of the left inguinal region with activity. Review of Systems - Constitutional Denies chills, Denies fever - Genitourinary Reports as per HPI Past Medical History Past Medical History: Atrial Fibrillation, Heart Failure, Hypertension, Pneumonia Additional Past Medical History / Comment(s): 07-01-14 [place] A-FIB History of Any Multi-Drug Resistant Organisms: None Reported Past Surgical History: Appendectomy, Heart Catheterization, Hernia Repair Additional Past Surgical History / Comment(s): 2013 cardiac cath, PENELOPE/CVN, abdominal hernia repair. Past Anesthesia/Blood Transfusion Reactions: No Reported Reaction Smoking Status: Former smoker - Past Family History Father Family Medical History: Diabetes Mellitus Additional Family Medical History / Comment(s): DAD IS 81 yrs old Mother Family Medical History: No Reported History Additional Family Medical History / Comment(s): Mother is healthy. She is 79yrs old. Medications and Allergies Home Medications Medication Instructions Recorded Confirmed Type Apixaban [Eliquis] 5 mg PO BID #60 tab 02/26/19 Rx Furosemide [Lasix] 40 mg PO BID #180 tab 02/26/19 Rx Lisinopril [Zestril] 10 mg PO BID #180 tab 02/26/19 Rx Metoprolol Tartrate [Lopressor] 25 mg PO BID #180 tab 02/26/19 Rx Spironolactone [Aldactone] 25 mg PO DAILY #90 tab 02/26/19 Rx Allergies Allergy/AdvReac Type Severity Reaction Status Date / Time No Known Allergies Allergy Verified 02/23/19 07:21 Surgical - Exam Vital Signs Temp Pulse Resp BP Pulse Ox 97.9 F 117 H 22 174/126 98 02/23/19 06:32 02/23/19 06:32 02/23/19 06:32 02/23/19 06:32 02/23/19 06:32 - General well developed, well nourished, no distress - Abdomen Abdomen: soft, non tender Hernia: none - Genitourinary normal penis with no external lesions, testicles non-tender, other (Minimal scrotal edema) Results - Labs 02/25/19 05:59 02/26/19 05:46 Abnormal Lab Results - Last 24 Hours (Table) 02/26/19 Range/Units 05:46 Carbon Dioxide 35 H (22-30) mmol/L BUN 32 H (9-20) mg/dL Diabetes panel 02/26/19 Range/Units 05:46 Sodium 139 (137-145) mmol/L Potassium 4.2 (3.5-5.1) mmol/L Chloride 100 (98-107) mmol/L Carbon Dioxide 35 H (22-30) mmol/L BUN 32 H (9-20) mg/dL Creatinine 1.14 (0.66-1.25) mg/dL Glucose 93 (74-99) mg/dL Calcium 9.1 (8.4-10.2) mg/dL Calcium panel 02/26/19 Range/Units 05:46 Calcium 9.1 (8.4-10.2) mg/dL Pituitary panel 02/26/19 Range/Units 05:46 Sodium 139 (137-145) mmol/L Potassium 4.2 (3.5-5.1) mmol/L Chloride 100 (98-107) mmol/L Carbon Dioxide 35 H (22-30) mmol/L BUN 32 H (9-20) mg/dL Creatinine 1.14 (0.66-1.25) mg/dL Glucose 93 (74-99) mg/dL Calcium 9.1 (8.4-10.2) mg/dL Adrenal panel 02/26/19 Range/Units 05:46 Sodium 139 (137-145) mmol/L Potassium 4.2 (3.5-5.1) mmol/L Chloride 100 (98-107) mmol/L Carbon Dioxide 35 H (22-30) mmol/L BUN 32 H (9-20) mg/dL Creatinine 1.14 (0.66-1.25) mg/dL Glucose 93 (74-99) mg/dL Calcium 9.1 (8.4-10.2) mg/dL Assessment and Plan (1) Scrotal edema Narrative/Plan: I explained to the patient that his scrotal edema is most likely related to his congestive heart failure. This is consistent with improvement of his peripheral edema following diuresis. He did seem to localize his pain to the region of the left groin but I was unable to palpate a definite hernia. If pain in this region continues general surgical consultation might be considered as an outpatient. Status: Acute Code(s): N50.89 - OTHER SPECIFIED DISORDERS OF THE MALE GENITAL ORGANS SNOMED Code(s): 83962473
[2019-02-26] MEDS ORDERED: FUROSEMIDE 40 MG TAB PO SCH (21:00)
== END 2019-02-26 13:42 | disposition home or self-care (01) | DRG 293 ==
LOC: EC 06:26 → 3SCARD 11:17
PROVIDERS: ADMIT Family Medicine; ATTEND Family Medicine
DX: I11.0 Hypertensive heart disease with heart failure (principal); I27.20 Pulmonary hypertension, unspecified; I25.5 Ischemic cardiomyopathy; I48.0 Paroxysmal atrial fibrillation; I50.23 Acute on chronic systolic (congestive) heart failure; N50.82 Scrotal pain; R00.1 Bradycardia, unspecified; Z79.82 Long term (current) use of aspirin; Z91.120 Patient's intentional underdosing of medication regimen due to financial hardship; Z87.891 Personal history of nicotine dependence; Z90.49 Acquired absence of other specified parts of digestive tract; Z83.3 Family history of diabetes mellitus
CPT/HCPCS: 36415; 71046; 80048; 80053; 80061; 82550; 83735; 83880; 84484; 85025; 85379; 85610; 85730; 93005; 93306; 94640; 96365; 96366; 96368; 96375; 96376; 99291

== ENCOUNTER 2020-10-29 09:24 | Day surgery (SDC) | payer OTHER ==
[2020-10-23 15:57] VITALS: BMI 33.9
[~2020-10-29 09:24] MED LIST: LACTATED RINGERS 1,000 ML IV SCH; LIDOCAINE 1% (10MG/ML) FOR IV START INTRADERMA PRN; SODIUM CHLORIDE 0.9% 1,000 ML IV SCH
[2020-10-29 10:24] LABS: Basophils # (A) 0.1 k/uL (0-0.2); Basophils % (A) 2 %; Eosinophils # (A) 0.2 k/uL (0-0.7); Eosinophils % (A) 2 %; Lymphocytes # (A) 1.9 k/uL (1.0-4.8); Lymphocytes % (A) 27 %; MCH 29.6 pg (25.0-35.0); MCHC 33.8 g/dL (31.0-37.0); MCV 87.6 fL (80.0-100.0); Mean Platelet Volume 7.1; Monocytes # (A) 0.6 k/uL (0-1.0); Monocytes % (A) 9 %; Neutrophils % (A) 58 %; Platelet Count 173 k/uL (150-450); RBC 6.61 m/uL (4.30-5.90); RDW 13.3 % (11.5-15.5)
[2020-10-29] MEDS: BENZOCAINE SPRAY 1 CAN MUCOUS MEM ONE ×2 (10:29→10:35)
[2020-10-29 10:30] LABS: African American GFR (CKD) >90 (>60 ml/min/1.73 sqM); Anion Gap 6 mmol/L; Blood Urea Nitrogen 27 mg/dL (9-20); Calcium 9.4 mg/dL (8.4-10.2); Carbon Dioxide 27 mmol/L (22-30); Chloride 107 mmol/L (98-107); Glucose 113 mg/dL (74-99); Non-African American GFR(CKD) >90 (>60 ml/min/1.73 sqM); Potassium 4.7 mmol/L (3.5-5.1); Sodium 140 mmol/L (137-145)
[2020-10-29] MEDS ORDERED: PROPOFOL 10 MG/ML 20 ML VIAL IV ONE (10:30)
[2020-10-29 10:33] LABS: HCT 57.9 % (39.0-53.0); HGB 19.6 gm/dL (13.0-17.5)
[2020-10-29] MEDS ORDERED: SODIUM CHLORIDE 0.9% 1,000 ML IV SCH (11:00)
[2020-10-29 11:07] VITALS: TEMP 98
--- NOTE | 2020-10-29 11:17 | CE ---
CARDIAC ELECTROPHYSIOLOGY REPORT CARDIOVERSION PROCEDURE NOTE: INDICATION: Atrial fibrillation. PROCEDURE: After explaining the procedure to the patient as well as the risks and the complications, his blood pressure, heart rate, O2 saturation was monitored and transesophageal echocardiogram was performed. After obtaining sedated state by anesthesia department, a synchronized biphasic cardioversion using 200 joules was performed with faith of normal sinus rhythm. There was no immediate complication. MEGAN / CARIN: [id number] /
--- NOTE | 2020-10-29 11:45 | ECHOT ---
TRANSESOPHAGEAL ECHOCARDIOGRAM INDICATION: Evaluation of left atrial appendage. PROCEDURE: After explaining the procedure to the patient as well as the risks and the complications, his blood pressure, heart rate, O2 saturation was monitored. The throat was sprayed with Cetacaine. He received sedation per Anesthesia Department. The probe was introduced in the esophagus without difficulty. Images were obtained. The probe was removed. There was no immediate complication. FINDINGS: Biatrial enlargement was noted. Left atrial appendage is normal. Left ventricular size is normal. There is evidence of mild global hypokinesis, estimated ejection fraction 50% to 55%. The aortic valve appears to be normal. Mitral valve revealed mild thickening of the mitral valve leaflets. Tricuspid valve is normal. Pulmonic valve is normal. Descending thoracic aorta revealed mild atherosclerotic changes. No pericardial effusion was noted. Contrast bubble study revealed no evidence of shunting across the interatrial septum. Doppler pulse wave and color Doppler obtained revealed moderate mitral and tricuspid regurgitation. The estimated right ventricular systolic pressure is 38 mmHg. There was no shunting across the interatrial septum. CONCLUSION: 1. Biatrial enlargement with normal appearance left atrial appendage. 2. Normal left ventricular size with mild global hypokinesis. 3. Moderate mitral and tricuspid regurgitation. 4. No evidence of shunting by color Doppler study. MMODL / IJN: [id number] /
[2020-10-29 11:59] VITALS: RESP 16
[2020-10-29 12:51] LABS: INR 2.1 (<1.2)
[2020-10-29 13:29] VITALS: BP 169/96; PULSE 60
[2020-10-29 13:37] LABS: Prothrombin Time 20.8 sec (9.0-12.0)
[2020-10-29] MEDS ORDERED: WARFARIN 5 MG TAB PO SCH (21:00)
[2020-10-29] MEDS ORDERED: METOPROLOL TARTRATE 25 MG TAB PO SCH (21:00)
[2020-10-30] MEDS ORDERED: SPIRONOLACTONE 25 MG TAB PO SCH (09:00)
[2020-10-30] MEDS ORDERED: lisinopriL 10 MG TAB PO SCH (09:00)
== END 2020-10-29 13:08 | disposition home or self-care (01) ==
LOC: CATHCVL 09:24
PROVIDERS: ATTEND Internal Medicine Interventional Cardiology
DX: I48.19 Other persistent atrial fibrillation (principal); I08.1 Rheumatic disorders of both mitral and tricuspid valves; I70.0 Atherosclerosis of aorta; I42.8 Other cardiomyopathies; I25.10 Atherosclerotic heart disease of native coronary artery without angina pectoris; I10 Essential (primary) hypertension; Z79.01 Long term (current) use of anticoagulants; Z79.899 Other long term (current) drug therapy; Z90.49 Acquired absence of other specified parts of digestive tract; Z98.890 Other specified postprocedural states; Z82.49 Family history of ischemic heart disease and other diseases of the circulatory system; Z87.891 Personal history of nicotine dependence
CPT/HCPCS: 93312; 93320; 93325; 92960; 80048; 85025; 85610; J2704

== ENCOUNTER 2022-04-20 06:24 | Day surgery (SDC) | payer OTHER ==
[2022-04-15 15:13] VITALS: BMI 38.0
[~2022-04-20 06:24] MED LIST changes: +DEXAMETHASONE SOD PHOSPHATE 4 MG/ML 1 ML VIAL IV ONE; +ONDANSETRON 4 MG/2 ML VIAL IVP ONE
[2022-04-20] MEDS ORDERED: SODIUM CHLORIDE 0.9% 1,000 ML IV ONE ×2 (06:58→14:35)
[2022-04-20] MEDS ORDERED: ONDANSETRON 4 MG/2 ML VIAL IVP PRN (07:00)
[2022-04-20] MEDS ORDERED: MORPHINE SULFATE 2 MG/ML SYRINGE IV PRN (07:00)
[2022-04-20 07:23] LABS: INR 2.4 (<1.2); Prothrombin Time 24.3 sec (9.0-12.0)
[2022-04-20] MEDS ORDERED: MIDAZOLAM 2 MG/2 ML VIAL ONE (08:05)
[2022-04-20] MEDS ORDERED: PROPOFOL 10 MG/ML 20 ML VIAL IV ONE (08:05)
[2022-04-20] MEDS ORDERED: NEOSTIGMINE 1 MG/ML 10 ML VIAL ONE (08:05)
[2022-04-20] MEDS ORDERED: SUCCINYLCHOLINE CHLORIDE VIAL 200 MG/10 ML VIAL IV ONE (08:05)
[2022-04-20] MEDS ORDERED: ROCURONIUM 10 MG/ML (5 ML VIAL) IV ONE (08:05)
[2022-04-20] MEDS ORDERED: LIDOCAINE 2% INJ 20 MG/ML (2 ML VIAL) ONE (08:05)
[2022-04-20] MEDS ORDERED: HYDROmorphone (PF) 1 MG/ML ONE (08:05)
[2022-04-20] MEDS ORDERED: GLYCOPYRROLATE 0.2 MG/ML 2 ML VIAL ONE (08:05)
[2022-04-20] MEDS ORDERED: FUROSEMIDE 10 MG/ML 2 ML VIAL ONE (08:05)
[2022-04-20] MEDS ORDERED: ePHEDrine 50 MG/ML 1 ML VIAL ONE (08:05)
[2022-04-20] MEDS ORDERED: HEPARIN SODIUM,PORCINE 10,000 UNIT/ML 1 ML VIAL ONE (08:05)
[2022-04-20] MEDS ORDERED: fentaNYL (PF) 50 MCG/ML 2 ML AMP ONE (08:05)
[2022-04-20] MEDS ORDERED: PHENYLEPHRINE-0.9% NACL SYG 1,000 MCG/10 ML SYRINGE ONE (08:05)
[2022-04-20] MEDS ORDERED: HEPARIN SOD,PORK IN 0.45% NACL 25,000 UNIT in 0.45% NACL 1 250ML.BAG IV ONE (09:02)
[2022-04-20] MEDS ORDERED: LIDOCAINE 1% INJ 10MG/ML (20 ML MDV) SQ ONE (09:10)
[2022-04-20] MEDS ORDERED: HEPARIN SODIUM (1,000 UNIT/ML) 1,000 UNIT in SODIUM CHLORIDE 0.9% 1,000 ML IRRIGATION ONE ×3 (09:13→14:36)
[2022-04-20] MEDS ORDERED: IOPAMIDOL-370 100ML BTL INJ ONE (12:24)
[2022-04-20] MEDS ORDERED: ACETAMINOPHEN IV (For NPO) 1,000 MG in EMPTY BAG 1 BAG IVPB ONE (15:35)
[2022-04-20 16:19] LABS: Glucose,Whole Blood 132 mg/dL (70-110)
--- NOTE | 2022-04-20 16:22 | P.EPPROC ---
- EP Procedure Note Electrophysiology Procedure Note: Diagnosis Long-standing persistent atrial fibrillation Significant left atrial enlargement Cardio myopathy Symptomatic status. Heart failure Procedures performed Pulmonary vein isolation Electrical cardioversion Linear ablation of the left atrial roof Linear ablation left atrial septum Typical atrial flutter ablation Posterior wall linear ablation performed Extended procedure duration Intraoperative diagnosis Enlarged right atrium Significantly enlarged left atrium, almost 7 cm Very long roof of greater than 5 cm Very long cavo tricuspid isthmus of greater than 5 cm Long septal linear ablation Difficult transseptal on account of size of the right atrium As a result the procedure took greater than 6 hours Details Patient was brought to the EP lab in a fasting state. Written informed consent was obtained prior to the procedure Patient was evaluated for the procedure. General anesthesia provided We sheaths placed in the right left femoral veins Diagnostic mapping and ablation cath was placed Patient was in atrial fibrillation at the start of the study Left and right transseptal catheterization was performed Catheter placed in high right atrium and the coronary sinus and later in the phrenic nerve area in the right side Pulmonary vein isolation performed This was a long and difficult procedure Patient's pulmonary veins for large and multiple lesions had to be delivered in a subsegmental fashion isolate the veins successfully Phrenic nerve stimulation and monitoring was performed The phrenic nerve stimulation was positive in the right pulmonary vein but remains safe for the procedure Electrical cardioversion to sinus rhythm was performed Following that voltage mapping was performed Linear ablation performed This is a long time on account of the length of the left atrial roof of greater than 5 cm Complete line of block was made An septal ablation was performed from the roof down to the right inferior pulmonary vein Posterior wall ablation was performed outside the right-sided veins at the antral level Once this was performed the patient would repeatedly experienced an atrial tachycardia consistent with atrial flutter No further atrial fibrillation could be induced with mechanical stimulation The patient thereafter repeatedly run into an atrial tachycardia consistent with atrial flutter Then the cavo tricuspid isthmus was mapped abrupt termination occurred Following that in atrial flutter ablation was performed Once again he had a very long isthmus of greater than 5 cm Complete line of block was made Addendum the procedure the venous access sites was sealed with Vascade Sinus cycle length 634 ms, NJ interval 159, QRS 97 and QT 373 ms AH 89, HV 43 RA pressure 12/13/17 line LA pressure 27/15/21 Atrial tachycardia cycle length 388 ms
--- NOTE | 2022-04-20 16:32 | P.HPCAR ---
History of Present Illness This is Dr. Johnson dictating an H/P on this patient The patient was interviewed and examined IMPRESSION / ASSESSMENT: Long-standing persistent atrial fibrillation Significantly enlarged left atrium on transthoracic echo with preserved systolic function Symptoms of tiredness and fatigue and shortness of breath on exertion Hypertension Normal coronary arteries several years back Moderate severe mitral regurgitation PLAN: Atrial fibrillation ablation Patient's left atrium was significantly enlarged and I would proceed with pulmonary vein isolation of the antral level as well as linear ablation and ablation of any tachycardias inducible during the study HPI Patient has complaints of exhaustion and tiredness fatigue He is short of breath with ALLERGY exertion LV function shows preserved LV systolic function but with a significantly enlarged left atrium [id number] mitral regurgitation Denies any fever chills cough expectoration Denies any chest discomfort or syncope over the last one week ROS: No fever chills or rigors, no cough, phlegm or expectoration, no nausea, vomiting or diarrhea, no hematuria, dysuria, no musculoskeletal complaints, no strokes or seizures, no skin lesions. EXAMINATION: Temperature 90.9, normal respirations Blood pressure 140 196. His mercury Normal breath sounds no rhonchi no crackles Irregular rhythm, soft systolic murmur Abdomen is soft No lower extremity edema No JVD REVIEW OF LABS, ECG & MEDICAL DATA Patient on Coumadin, INR 2.4, glucose 132 Coronavirus PCR undetectable Medication list was reviewed and includes warfarin spironolactone metoprolol tartrate 25 mg twice daily lisinopril Physical Exam Vitals: Vital Signs Temp Pulse Resp BP Pulse Ox 04/20/22 07:12 99.4 F 93 16 140/96 95 Intake and Output 04/20/22 04/20/22 04/20/22 06:59 14:59 22:59 Intake Total 50 2629 Output Total 900 Balance 50 2629 -900 Intake: IV 50 2629 Output: Urine 900 Other: Weight 128.5 kg 128.5 kg Past Medical History Past Medical History: Heart Failure, Hypertension, Pneumonia Additional Past Medical History / Comment(s): SEE DR JOHNSON'S CARDIOLOGY H & P. History of Any Multi-Drug Resistant Organisms: None Reported Past Surgical History: Appendectomy, Heart Catheterization, Hernia Repair Additional Past Surgical History / Comment(s): 2013 cardiac cath, PENELOPE X2, CARDIOVERSION, abdominal hernia repair. Past Anesthesia/Blood Transfusion Reactions: No Reported Reaction Smoking Status: Former smoker - Past Family History Father Family Medical History: Diabetes Mellitus Additional Family Medical History / Comment(s): . Mother Family Medical History: No Reported History Additional Family Medical History / Comment(s): . Physical Examination Vital Signs Temp Pulse Resp BP Pulse Ox 04/20/22 07:12 99.4 F 93 16 140/96 95 Intake and Output 04/20/22 04/20/22 04/20/22 06:59 14:59 22:59 Intake Total 50 2629 Output Total 900 Balance 50 2629 -900 Intake: IV 50 2629 Output: Urine 900 Other: Weight 128.5 kg 128.5 kg Results Coagulation 04/20/22 Range/Units 07:09 PT 24.3 H (9.0-12.0) sec Current Medications Generic Name Dose Route Start Last Admin Trade Name Freq PRN Reason Stop Dose Admin Acetaminophen 650 mg 04/20/22 15:35 Acetaminophen Tab 325 Mg Tab PO 05/20/22 15:36 Q6HR PRN Mild Pain Sodium Chloride 1,000 mls @ 20 mls/hr 04/20/22 05:44 Saline 0.9% IV 05/20/22 05:45 .Q24H BERNARD Lactated Ringer's 1,000 mls @ 20 mls/hr 04/20/22 05:44 Lactated Ringers IV 05/20/22 05:45 .Q24H BERNARD Lidocaine HCl 0.1 ml 04/20/22 05:44 Lidocaine 1% (10mg/Ml) For Iv Start INTRADERMA 05/20/22 05:45 PER PROTOCOL PRN IV Start Lisinopril 10 mg 04/21/22 09:00 Lisinopril 10 Mg Tab PO 05/21/22 09:01 DAILY BERNARD Metoprolol Tartrate 25 mg 04/20/22 21:00 Metoprolol Tartrate 25 Mg Tab PO 05/20/22 21:01 BID BERNARD Miscellaneous Information 0 each 04/20/22 16:24 Warfarin Per Pharmacy MISCELLANE DIRECTED PRN per protocol Morphine Sulfate 2 mg 04/20/22 07:00 Morphine Sulfate 2 Mg/Ml Syringe IV 04/20/22 23:00 Q5M PRN Phase 1 or 2 - Pain Control Ondansetron HCl 4 mg 04/20/22 07:00 Ondansetron 4 Mg/2 Ml Vial IVP 04/20/22 23:00 ONCE PRN Phase 1 or 2 - Nausea/Vomiting Sodium Chloride 12 ml 04/20/22 15:35 Sodium Chloride 0.9% Flush 10 Ml Syringe IV 05/20/22 15:36 Q12HR PRN Line Flush Spironolactone 25 mg 04/21/22 09:00 Spironolactone 25 Mg Tab PO 05/21/22 09:01 DAILY [facility] Warfarin Sodium 7.5 mg 04/23/22 18:00 Warfarin 7.5 Mg Tab PO [id number] [facility] Protocol Warfarin Sodium 10 mg 04/20/22 18:00 Warfarin 10 Mg Tab PO [id number] [facility] Protocol Intake and Output 04/20/22 04/20/22 04/20/22 06:59 14:59 22:59 Intake Total 50 2629 Output Total 900 Balance 50 2629 -900 Intake: IV 50 2629 Output: Urine 900 Other: Weight 128.5 kg 128.5 kg Patient Weight 04/21/22 06:59 Weight 128.5 kg
--- NOTE | 2022-04-20 16:33 | P.PRLE ---
RE: Brad Dooley Dear Dr. Madhavi Salinas underwent an extensive A. fib ablation for long-standing persistent atrial fibrillation He has a very significantly enlarged left atrium almost 7 cm Hopefully this results in maintenance of sinus rhythm He will continue his cardiac medications and anticoagulation and will follow with you and Dr. Temple as before Thank you for entrusting me with the care of the patient Warm regards Sincerely Fermín Johnson
[2022-04-20] MEDS ORDERED: WARFARIN 10 MG TAB PO SCH (18:00)
[2022-04-20] MEDS: METOPROLOL TARTRATE 25 MG TAB PO SCH (20:02)
[2022-04-21] MEDS: ACETAMINOPHEN TAB 325 MG TAB PO PRN ×2 (04:07→12:02)
[2022-04-21 07:28] VITALS: BP 154/83; PULSE 100; RESP 16; TEMP 97.7
--- NOTE | 2022-04-21 07:59 | P.DS ---
Providers Attending physician: Fermín Johnson Primary care physician: Isaac Teehven [facility] Course: Patient is doing well. He has a little for sore throat. Yesterday he had pleuritic chest discomfort when he would take a deep breath. Today it is better His groin was sore earlier but now after removed the sutures he feels better He is sitting comfortably in a chair alert and oriented Yesterday he was complaining of tremors but today he has none on examination Afebrile 97.7F pulse rate 90 blood pressure 124/81 mmHg Head and neck examination is normal Heart sounds S1 and S2 are normal no murmurs or gallops no rub 9 breath sounds reduced bilaterally no crackles Groin is healed well no hematoma Impression Long-standing persistent atrial fibrillation Significantly enlarged right atrium Significantly enlarged left atrium Increased BMI, increased neck circumference Hypertension Successful A. fib ablation with pulmonary vein isolation, linear ablation of the left atrial roof Linear ablation of the posterior wall, linear ablation in the septum of the left atrium and atrial flutter ablation Plan Continue anticoagulation Continue cardiac medications Hypertension management Evaluation for sleep apnea as an outpatient is recommended Weight reduction Adequate hydration and incentive spirometry use for the next week recommended to patient Discharge home later today Plan - Discharge Summary Discharge Rx Participant: Yes New Discharge Prescriptions: Continue RX: Spironolactone [Aldactone] 25 mg PO DAILY #90 tab RX: Metoprolol Tartrate [Lopressor] 25 mg PO BID #180 tab RX: Warfarin [Coumadin] 10 mg PO SUTUWETHSA RX: lisinopriL [Zestril] 10 mg PO DAILY RX: Warfarin [Coumadin] 7.5 mg PO MOFR Discharge Medication List RX: Metoprolol Tartrate [Lopressor] 25 mg PO BID #180 tab 02/26/19 [Rx] RX: Spironolactone [Aldactone] 25 mg PO DAILY #90 tab 02/26/19 [Rx] RX: Warfarin [Coumadin] 10 mg PO SUTUWETHSA 10/23/20 [History] RX: lisinopriL [Zestril] 10 mg PO DAILY 10/23/20 [History] RX: Warfarin [Coumadin] 7.5 mg PO MOFR 04/15/22 [History] Follow up Appointment(s)/Referral(s): Anette Temple MD [STAFF PHYSICIAN] - 1 Week Activity/Diet/Wound Care/Special Instructions: Post EP study - Ablation instructions 1. Keep access sites dry for 2 days. 2. No heavy lifting or straining for 2 days. 3. Avoid bending the hips repeatedly for 2 days. 4. You may go up and down stairs slowly Call if the following is noted 1. Bleeding, increasing swelling or pain at the access sites. 2. Increasing chest discomfort, especially upon taking a deep breath. 3. Increasing shortness of breath, at rest or with exertion. 4. Undue cough / phlegm 5. Difficulty or pain while swallowing. 6. Pain or change in color in the extremities. 7. Fever, chills, rigors. 8. Increasing headache or neurologic symptoms. 9. Dizziness, fainting, palpitations Continue warfarin Discharge Disposition: HOME SELF-CARE
[2022-04-21] MEDS ORDERED: SPIRONOLACTONE 25 MG TAB PO SCH (09:00)
[2022-04-21] MEDS ORDERED: lisinopriL 10 MG TAB PO SCH (09:00)
[2022-04-21] MEDS: METOPROLOL TARTRATE 25 MG TAB PO SCH (09:16)
[2022-04-21 10:07] LABS: INR 2.1 (0.90-1.11); Prothrombin Time 22.3 sec (9.9-11.9)
[2022-04-23] MEDS ORDERED: WARFARIN 7.5 MG TAB PO SCH (18:00)
== END 2022-04-21 13:25 | disposition home or self-care (01) ==
LOC: CATHEP 06:24 → 6NMEDSUR 16:20 → CATHEP 04-21 13:25
PROVIDERS: ATTEND Internal Medicine Clinical Cardiac Electrophysiology
DX: I48.11 Longstanding persistent atrial fibrillation (principal); I42.9 Cardiomyopathy, unspecified; I34.0 Nonrheumatic mitral (valve) insufficiency; I11.0 Hypertensive heart disease with heart failure; I50.9 Heart failure, unspecified; Z20.822 Contact with and (suspected) exposure to COVID-19; Z79.01 Long term (current) use of anticoagulants; Z79.899 Other long term (current) drug therapy
CPT/HCPCS: 92960; 93656; 93657; 85610 ×2; 87635; C1759; C1894; C1769 ×4; C1760; C1766 ×2; C1730 ×2; C1893; C1733; C1732; J2250; J0330; J1644 ×3; J1940; J2710; J2001 ×2; J3010; J1170; J2370; J2704; Q9967; 93613; 93662

== ENCOUNTER 2022-07-21 06:01 | Day surgery (SDC) | payer OTHER ==
[2022-07-19 17:01] VITALS: BMI 38.0
[~2022-07-21 06:01] MED LIST changes: -DEXAMETHASONE SOD PHOSPHATE 4 MG/ML 1 ML VIAL IV ONE; -LACTATED RINGERS 1,000 ML IV SCH; -LIDOCAINE 1% (10MG/ML) FOR IV START INTRADERMA PRN; -ONDANSETRON 4 MG/2 ML VIAL IVP ONE
[2022-07-21] MEDS ORDERED: SODIUM CHLORIDE 0.9% 500 ML 500 ML IV ONE (06:51)
[2022-07-21 06:54] VITALS: TEMP 98.1
[2022-07-21 07:04] LABS: Prothrombin Time 39.9 sec (9.0-12.0)
[2022-07-21 07:11] LABS: African American GFR (CKD) >90 (>60 ml/min/1.73 sqM); Anion Gap 11 mmol/L; Blood Urea Nitrogen 17 mg/dL (9-20); Calcium 8.9 mg/dL (8.4-10.2); Carbon Dioxide 25 mmol/L (22-30); Chloride 103 mmol/L (98-107); Glucose 103 mg/dL (74-99); Non-African American GFR(CKD) >90 (>60 ml/min/1.73 sqM); Sodium 139 mmol/L (137-145)
[2022-07-21] MEDS ORDERED: MIDAZOLAM 2 MG/2 ML VIAL ONE (07:14)
[2022-07-21] MEDS ORDERED: PROPOFOL 10 MG/ML 20 ML VIAL IV ONE (07:14)
[2022-07-21] MEDS ORDERED: LIDOCAINE 2% INJ 20 MG/ML (2 ML VIAL) ONE (07:14)
[2022-07-21 07:18] LABS: Potassium 5.1 mmol/L (3.5-5.1)
[2022-07-21] MEDS ORDERED: WARFARIN 5 MG TAB PO SCH (07:45)
[2022-07-21] MEDS ORDERED: SODIUM CHLORIDE 0.9% 1,000 ML IV SCH (07:45)
--- NOTE | 2022-07-21 07:45 | P.PCN ---
Date of Procedure: 07/21/22 Description of Procedure: Indication: Evaluation of the atrial appendage Procedure Description: After explaining the procedure to the patient, it's risk and complications, blood pressure, heart rate and O2 saturation were monitored. The throat was sprayed with Cetacaine. Patient received sedation per anesthesia department. The probe was introduced into the esophagus without difficulty. Images were obtained. Following that, the probe was removed. There was no immediate complication. Findings: Left atrial size is dilated, left atrial appendage is normal. The ventricle size is normal with global hypokinesis and ejection fraction of 30-35%. The aortic valve revealed mild fibrocalcific changes of the aortic cusp was preserved opening. Mild prolapse of the posterior mitral valve leaflets was noted. Tricuspid valve is normal, pulmonic valve is normal. Descending thoracic aorta appears to be normal. No pericardial effusion was noted. Contrast bubble study revealed no shunting across the intra-atrial septum. Doppler: Pulse wave and color Doppler were obtained, severe eccentric mitral regur gitation with moderate tricuspid regurgitation and mild pulmonary hypertension. Trace aortic regurgitation was noted. Evidence of [id number] shunting was noted across the interatrial septum with probable iatrogenic ASD post-ablation. Conclusion: 1. Dilated left atrium with normal appearance of the left atrial appendage 2. Severely impaired left ventricular systolic function 3. Prolapse of the posterior mitral valve leaflet with severe eccentric mitral regurgitation 4. And moderate tricuspid regurgitation with mild pulmonary hypertension 5. Cliy-[id number] shunting across the intra-atrial septum 6. Normal appearance of the descending thoracic aorta
--- NOTE | 2022-07-21 07:46 | P.PCN ---
Date of Procedure: 07/21/22 Description of Procedure: Procedure: Cardioversion Indication: Atrial fibrillation After explaining the procedure to the patient as well as the risks and the complications and after performing a PENELOPE and obtaining sedated state per anesthesia department a synchronized cardioversion using 150, 200, 200 J were unsuccessful in restoring sinus mechanism. There was no immediate complications.
[2022-07-21 07:57] VITALS: RESP 16
[2022-07-21] MEDS ORDERED: SPIRONOLACTONE 25 MG TAB PO SCH (09:00)
[2022-07-21] MEDS ORDERED: lisinopriL 10 MG TAB PO SCH (09:00)
[2022-07-21] MEDS ORDERED: METOPROLOL TARTRATE 25 MG TAB PO SCH (09:00)
[2022-07-21 09:47] VITALS: BP 124/87; PULSE 70
[2022-07-23] MEDS ORDERED: WARFARIN 7.5 MG TAB PO SCH (07:40)
== END 2022-07-21 09:37 | disposition home or self-care (01) ==
LOC: CATHCVL 06:01
PROVIDERS: ATTEND Internal Medicine Interventional Cardiology
DX: I48.19 Other persistent atrial fibrillation (principal); I34.0 Nonrheumatic mitral (valve) insufficiency; I10 Essential (primary) hypertension; Z72.0 Tobacco use; I08.1 Rheumatic disorders of both mitral and tricuspid valves; I27.20 Pulmonary hypertension, unspecified; Z90.49 Acquired absence of other specified parts of digestive tract; Z98.890 Other specified postprocedural states; Z82.49 Family history of ischemic heart disease and other diseases of the circulatory system; Z79.01 Long term (current) use of anticoagulants; Z79.899 Other long term (current) drug therapy
CPT/HCPCS: 93312; 93320; 93325; 92960; 80048; 85610; J2250; J2704; J2001

== ENCOUNTER 2022-10-12 11:42 | Inpatient (IN) | payer OTHER ==
[2022-10-12] MEDS ORDERED: MAGNESIUM SULFATE-D5W PMX 1 GM in DEXTROSE/WATER 1 100ML.BAG IVPB PRN (12:47)
[2022-10-12] MEDS: MAGNESIUM OXIDE 400 MG TAB PO SCH (12:55)
[2022-10-12 13:12] LABS: Prothrombin Time 29.3 sec (9.0-12.0)
[2022-10-12 13:18] LABS: African American GFR (CKD) >90 (>60 ml/min/1.73 sqM); Anion Gap 7 mmol/L; Blood Urea Nitrogen 19 mg/dL (9-20); Calcium 9.2 mg/dL (8.4-10.2); Carbon Dioxide 30 mmol/L (22-30); Chloride 105 mmol/L (98-107); Glucose 107 mg/dL (74-99); Magnesium 1.7 mg/dL (1.6-2.3); Non-African American GFR(CKD) 88 (>60 ml/min/1.73 sqM); Potassium 5.2 mmol/L (3.5-5.1); Sodium 142 mmol/L (137-145)
[2022-10-12] MEDS: MAGNESIUM SULFATE-D5W PMX 1 GM in DEXTROSE/WATER 1 100ML.BAG IVPB SCH (15:49)
--- NOTE | 2022-10-12 17:38 | P.HPCAR ---
History of Present Illness This is Dr. Johnson dictating an H/P on this patient The patient was interviewed and examined IMPRESSION / ASSESSMENT: We symptomatic persistent atrial fibrillation Extensive AF ablation the left atrium, failed Left atrium was significantly enlarged, almost 7 cm Moderate to severe mitral regurgitation Congestive heart failure chronic despite rate controlled atrial fibrillation Reduced left ventricular ejection fraction during atrial fibrillation Normalization of LV during sinus rhythm Normal renal function PLAN: Initiation of dofetilide. Since her renal function is normal and absolute QT interval is normal we will proceed with 500 g daily Follow-up dofetilide protocol Continue current medications Keep INR between 2.0 and 3.0, continue warfarin Continue heart failure medications Electrical cardioversion tomorrow HPI Patient complains of tiredness and fatigue and shortness of breath on exertion despite rate controlled atrial fibrillation No recent chest discomfort syncope No orthopnea PND ROS: No fever chills or rigors, no cough, phlegm or expectoration, no nausea, vomiting or diarrhea, no hematuria, dysuria, no musculoskeletal complaints, no strokes or seizures, no skin lesions. EXAMINATION: Afebrile 97.8F Blood pressure 126/78 mmHg pulse rate in the 70s and 80s irregular No JVD Clear lungs to rhonchi no crackles Systolic murmur over the precordium No lower extremity edema REVIEW OF LABS, ECG & MEDICAL DATA medication list includes lisinopril 10 mg twice daily, Toprol tartrate 75 mg twice daily, spironolactone 25 mg daily and warfarin INR today is 3.0 Sodium 142, potassium 5.2, BUN 19 and creatinine 0.93 Magnesium 1.7 TSH 2.0 Physical Exam Vitals: Vital Signs Temp Pulse Resp BP Pulse Ox 10/12/22 15:54 97.8 F 75 15 126/78 96 10/12/22 12:00 97.9 F 88 15 139/104 94 L Intake and Output 10/12/22 10/12/22 10/12/22 06:59 14:59 22:59 Intake Total 250 Balance 250 Intake: IV 10 Invasive Line 1 10 Oral 240 Other: Voiding Method Toilet Weight 127.4 kg Past Medical History Past Medical History: Atrial Fibrillation, Heart Failure, Hypertension, Pneumonia Additional Past Medical History / Comment(s): SEE DR JOHNSON'S CARDIOLOGY H & P. History of Any Multi-Drug Resistant Organisms: None Reported Past Surgical History: Appendectomy, Heart Catheterization, Hernia Repair Additional Past Surgical History / Comment(s): 2013 cardiac cath, PENELOPE X2, CARDIOVERSION, abdominal hernia repair. Past Anesthesia/Blood Transfusion Reactions: No Reported Reaction Past Psychological History: No Psychological Hx Reported Additional Psychological History / Comment(s): . Smoking Status: Former smoker Past Alcohol Use History: Occasional Additional Past Alcohol Use History / Comment(s): Pt started smoking in 1977 and quit 2021, SMOKED 1PPD Past Drug Use History: None Reported - Past Family History Father Family Medical History: Diabetes Mellitus Additional Family Medical History / Comment(s): . Mother Family Medical History: No Reported History Additional Family Medical History / Comment(s): . Physical Examination Vital Signs Temp Pulse Resp BP Pulse Ox 10/12/22 15:54 97.8 F 75 15 126/78 96 10/12/22 12:00 97.9 F 88 15 139/104 94 L Intake and Output 10/12/22 10/12/22 10/12/22 06:59 14:59 22:59 Intake Total 250 Balance 250 Intake: IV 10 Invasive Line 1 10 Oral 240 Other: Voiding Method Toilet Weight 127.4 kg Results 10/12/22 12:41 Coagulation 10/12/22 Range/Units 12:41 PT 29.3 H (9.0-12.0) sec Comprehensive Metabolic Panel 10/12/22 Range/Units 12:41 Sodium 142 (137-145) mmol/L Potassium 5.2 H (3.5-5.1) mmol/L Chloride 105 (98-107) mmol/L Carbon Dioxide 30 (22-30) mmol/L BUN 19 (9-20) mg/dL Creatinine 0.93 (0.66-1.25) mg/dL Glucose 107 H (74-99) mg/dL Calcium 9.2 (8.4-10.2) mg/dL Current Medications Generic Name Dose Route Start Last Admin Trade Name Freq PRN Reason Stop Dose Admin Dofetilide 500 mcg 10/12/22 18:00 Dofetilide 500 Mcg Cap PO 10/12/22 18:01 ONCE ONE Magnesium Sulfate/Dextrose 1 100 mls @ 400 mls/hr 10/12/22 12:47 gm/ IV Solution IVPB 10/18/22 23:00 Q15M PRN TIKOSYN LOAD Lisinopril 10 mg 10/12/22 21:00 Lisinopril 10 Mg Tab PO BID [facility] Magnesium Oxide 400 mg 10/12/22 12:45 10/12/22 12:55 Magnesium Oxide 400 Mg Tab PO 400 mg DAILY [facility] Administration Metoprolol Tartrate 75 mg 10/12/22 21:00 Metoprolol Tartrate 50 Mg Tab PO BID [facility] Sodium Chloride 10 ml 10/12/22 12:45 10/12/22 12:57 Sodium Chloride 0.9% Flush 10 Ml Syringe IV 10 ml BID [facility] Administration Spironolactone 25 mg 10/13/22 09:00 Spironolactone 25 Mg Tab PO DAILY [facility] Warfarin Sodium 10 mg 10/12/22 21:00 Warfarin 10 Mg Tab PO [id number] [facility] Protocol Intake and Output 10/12/22 10/12/22 10/12/22 06:59 14:59 22:59 Intake Total 250 Balance 250 Intake: IV 10 Invasive Line 1 10 Oral 240 Other: Voiding Method Toilet Weight 127.4 kg Patient Weight 10/13/22 06:59 Weight 127.4 kg 10/12/22 12:41
[2022-10-12] MEDS ORDERED: DOFETILIDE 500 MCG CAP PO ONE (18:00)
[2022-10-12] MEDS: lisinopriL 10 MG TAB PO SCH (20:43)
[2022-10-12] MEDS: METOPROLOL TARTRATE 50 MG TAB PO SCH (20:43)
[2022-10-12] MEDS: WARFARIN 10 MG TAB PO SCH (20:44)
[2022-10-13] MEDS ORDERED: DOFETILIDE 500 MCG CAP PO ONE (06:00)
[2022-10-13] MEDS: METOPROLOL TARTRATE 50 MG TAB PO SCH ×2 (06:07→20:44)
[2022-10-13] MEDS: SPIRONOLACTONE 25 MG TAB PO SCH (06:07)
[2022-10-13] MEDS: MAGNESIUM OXIDE 400 MG TAB PO SCH (06:07)
[2022-10-13] MEDS: lisinopriL 10 MG TAB PO SCH ×2 (06:07→20:44)
[2022-10-13] MEDS ORDERED: PROPOFOL 10 MG/ML 20 ML VIAL IV ONE (08:44)
[2022-10-13] MEDS ORDERED: IV FLUID CONTINUATION 500 ML IV ONE (08:48)
[2022-10-13] MEDS ORDERED: lisinopriL 10 MG TAB PO SCH (09:00)
[2022-10-13] MEDS: MAGNESIUM SULFATE-D5W PMX 1 GM in DEXTROSE/WATER 1 100ML.BAG IVPB SCH (09:32)
[2022-10-13 10:57] LABS: INR 3.1 (<1.2); Prothrombin Time 30.3 sec (9.0-12.0)
[2022-10-13 11:33] LABS: African American GFR (CKD) >90 (>60 ml/min/1.73 sqM); Anion Gap 8 mmol/L; Blood Urea Nitrogen 21 mg/dL (9-20); Calcium 8.8 mg/dL (8.4-10.2); Carbon Dioxide 27 mmol/L (22-30); Chloride 104 mmol/L (98-107); Glucose 117 mg/dL (74-99); Magnesium 2.2 mg/dL (1.6-2.3); Non-African American GFR(CKD) >90 (>60 ml/min/1.73 sqM); Potassium 4.7 mmol/L (3.5-5.1); Sodium 139 mmol/L (137-145)
--- NOTE | 2022-10-13 11:38 | P.EPPROC ---
- EP Procedure Note Electrophysiology Procedure Note: Procedure Electrical cardioversion after the second dose of dofetilide, 500 g each Diagnosis Symptomatic atrial fibrillation with atrial fibrillation induced cardio myopathy Severely dilated/enlarged left atrium of almost 7 cm by intracardiac echo measurements Status post A. fib ablation in the past Details Successful electrical cardioversion with a 200 J biphasic shock to sinus rhythm Patient tolerance the procedure well without any acute complications
--- NOTE | 2022-10-13 11:43 | P.PN ---
Progress Note - Text Patient is doing well post electrical cardioversion line he was reassessed later He is a call from from the anesthesia He denies any chest discomfort dizziness lightheadedness or shortness of breath He maintains sinus rhythm On examination Afebrile 97.1F, pulse rate in the 50s Blood pressure 128/78 mmHg Breath sounds are clear no rhonchi no crackles Heart sounds S1 and S2 are soft no murmurs INR 3.1 Sodium 139, potassium 4.7 Creatinine 0.86, stable Magnesium 2.2 Impression Atrial fibrillation, persistent Failed treatment with A. fib ablation Very dilated left atrium of 7 cm or so Atrial fibrillation related cardio myopathy, documented to be reversible during sinus rhythm, in the past Absolute QT interval after 2 doses of dofetilide, 500 g each is equal to almost 520 ms No ventricular arrhythmias Plan No further dofetilide dose today Twelve-lead EKG in the evening Based upon the absolute QT interval I will decide whether tomorrow morning we will give him dofetilide or not Daily BMP and magnesium 1 g of IV magnesium Continue warfarin
[2022-10-13] MEDS: ACETAMINOPHEN TAB 500 MG TAB PO PRN (17:02)
[2022-10-13] MEDS: WARFARIN 10 MG TAB PO SCH (20:44)
[2022-10-14] MEDS ORDERED: DOFETILIDE 125 MCG CAP PO ONE ×2 (06:00→18:00)
[2022-10-14 09:14] LABS: INR 4.2 (<1.2); Prothrombin Time 40.8 sec (9.0-12.0)
[2022-10-14] MEDS: SPIRONOLACTONE 25 MG TAB PO SCH (09:23)
[2022-10-14] MEDS: METOPROLOL TARTRATE 50 MG TAB PO SCH ×2 (09:23→20:54)
[2022-10-14] MEDS: lisinopriL 10 MG TAB PO SCH ×2 (09:23→20:54)
[2022-10-14] MEDS: MAGNESIUM OXIDE 400 MG TAB PO SCH (09:24)
[2022-10-14 09:30] LABS: African American GFR (CKD) >90 (>60 ml/min/1.73 sqM); Anion Gap 8 mmol/L; Blood Urea Nitrogen 20 mg/dL (9-20); Calcium 8.4 mg/dL (8.4-10.2); Carbon Dioxide 26 mmol/L (22-30); Chloride 104 mmol/L (98-107); Glucose 136 mg/dL (74-99); Magnesium 1.7 mg/dL (1.6-2.3); Non-African American GFR(CKD) >90 (>60 ml/min/1.73 sqM); Potassium 4.5 mmol/L (3.5-5.1); Sodium 138 mmol/L (137-145)
--- NOTE | 2022-10-14 12:48 | P.PN ---
Subjective Progress Note Date: 10/14/22 Patient is doing well post electrical cardioversion line he was reassessed later He is a call from from the anesthesia He denies any chest discomfort dizziness lightheadedness or shortness of breath He maintains sinus rhythm On examination Afebrile 97.1F, pulse rate in the 50s Blood pressure 128/78 mmHg Breath sounds are clear no rhonchi no crackles Heart sounds S1 and S2 are soft no murmurs INR 3.1 Sodium 139, potassium 4.7 Creatinine 0.86, stable Magnesium 2.2 Impression Atrial fibrillation, persistent Failed treatment with A. fib ablation Very dilated left atrium of 7 cm or so Atrial fibrillation related cardio myopathy, documented to be reversible during sinus rhythm, in the past Absolute QT interval after 2 doses of dofetilide, 500 g each is equal to almost 520 ms No ventricular arrhythmias / Yesterday, evening dose of dofetilide was held due to QT prolongation Absolute QT is 460-480 this morning no arrhythmias noted. Patient is tolerating well. Plan 1 dose of dofetilide 125 g today Twelve-lead EKG in the evening Based upon the absolute QT interval I will decide whether we will give him dofetilide or not Daily BMP and magnesium Continue warfarin Nurse practitioner note has been reviewed, I agree with the documented findings and plan of care. Patient was seen and examined. Objective - Vital Signs Vital signs: Vital Signs Temp 97.6 F 10/14/22 08:00 Pulse 65 10/14/22 12:00 Resp 16 10/14/22 08:00 BP 120/80 10/14/22 12:00 Pulse Ox 93 L 10/14/22 12:00 FiO2 Intake & Output 10/13/22 10/14/22 10/14/22 18:59 06:59 18:59 Intake Total 580 10 358 Balance 580 10 358 Weight 127.4 kg Intake: IV 220 10 Invasive Line 1 20 10 Oral 360 358 Other: Voiding Method Toilet Toilet # Voids 2 2 - Labs CBC & Chem 7: 10/14/22 08:29 Labs: Abnormal Lab Results - Last 24 Hours (Table) 10/14/22 10/14/22 Range/Units 08:01 08:29 PT 40.8 H (9.0-12.0) sec INR 4.2 H (<1.2) Glucose 136 H (74-99) mg/dL
[2022-10-14] MEDS ORDERED: WARFARIN 0.5 MG TAB PO ONE (18:00)
[2022-10-15] MEDS ORDERED: DOFETILIDE 125 MCG CAP PO ONE ×2 (06:00→06:15)
[2022-10-15] MEDS: ACETAMINOPHEN TAB 500 MG TAB PO PRN (06:29)
[2022-10-15] MEDS: SPIRONOLACTONE 25 MG TAB PO SCH (08:20)
[2022-10-15] MEDS: lisinopriL 10 MG TAB PO SCH ×2 (08:20→21:28)
[2022-10-15] MEDS: MAGNESIUM OXIDE 400 MG TAB PO SCH (08:20)
[2022-10-15] MEDS: METOPROLOL TARTRATE 50 MG TAB PO SCH ×2 (08:20→21:28)
[2022-10-15 08:39] LABS: INR 3.3 (<1.2); Prothrombin Time 32.3 sec (9.0-12.0)
[2022-10-15 08:59] LABS: African American GFR (CKD) >90 (>60 ml/min/1.73 sqM); Anion Gap 9 mmol/L; Blood Urea Nitrogen 19 mg/dL (9-20); Calcium 8.8 mg/dL (8.4-10.2); Carbon Dioxide 25 mmol/L (22-30); Chloride 104 mmol/L (98-107); Glucose 123 mg/dL (74-99); Magnesium 1.7 mg/dL (1.6-2.3); Non-African American GFR(CKD) 86 (>60 ml/min/1.73 sqM); Potassium 4.8 mmol/L (3.5-5.1); Sodium 138 mmol/L (137-145)
--- NOTE | 2022-10-15 14:14 | P.PN ---
Subjective Progress Note Date: 10/15/22 Patient is doing well post electrical cardioversion line he was reassessed later He is a call from from the anesthesia He denies any chest discomfort dizziness lightheadedness or shortness of breath He maintains sinus rhythm On examination Afebrile 97.1F, pulse rate in the 50s Blood pressure 128/78 mmHg Breath sounds are clear no rhonchi no crackles Heart sounds S1 and S2 are soft no murmurs INR 3.1 Sodium 139, potassium 4.7 Creatinine 0.86, stable Magnesium 2.2 Impression Atrial fibrillation, persistent Failed treatment with A. fib ablation Very dilated left atrium of 7 cm or so Atrial fibrillation related cardio myopathy, documented to be reversible during sinus rhythm, in the past Absolute QT interval after 2 doses of dofetilide, 500 g each is equal to almost 520 ms No ventricular arrhythmias 10/14 Yesterday, evening dose of dofetilide was held due to QT prolongation Absolute QT is 460-480 this morning no arrhythmias noted. Patient is tolerating well. 10/15 Patient continues to do well. He is currently on Tikosyn 125 mg twice daily and absolute QT is 460. He has had no arrhythmias. Heart rates running in the 70s, blood pressure 121/72. INR is 3.3 and Coumadin as dosed by pharmacy. Potassium 4.8 and magnesium 1.7. Patient is continued on oral magnesium. Plan Dofetilide 125 g every 12 hours. Prescription has been sent to the pharmacy. Preauthorization has been initiated by manager of case management for dofetilide. Arrangements have been made to use [employer] funds for the first 2 weeks of treatment until authorization is completed. Twelve-lead EKG in the evening Daily BMP and magnesium Continue warfarin Continue oral magnesium Anticipate discharge home on Tuesday Nurse practitioner note has been reviewed, I agree with the documented findings and plan of care. Patient was seen and examined. Objective - Vital Signs Vital signs: Vital Signs Temp 98 F 10/15/22 08:00 Pulse 71 10/15/22 08:00 Resp 18 10/15/22 08:00 BP 109/66 10/15/22 08:00 Pulse Ox 94 L 10/15/22 08:00 FiO2 Intake & Output 10/14/22 10/15/22 10/15/22 18:59 06:59 18:59 Intake Total 472 10 Balance 472 10 Intake: IV 10 Invasive Line 1 10 Oral 472 Other: Voiding Method Toilet Toilet # Voids 1 - Labs CBC & Chem 7: 10/15/22 07:39 Labs: Abnormal Lab Results - Last 24 Hours (Table) 10/15/22 10/15/22 Range/Units 07:39 07:39 PT 32.3 H (9.0-12.0) sec INR 3.3 H (<1.2) Glucose 123 H (74-99) mg/dL
[2022-10-15] MEDS: DOFETILIDE 125 MCG CAP PO SCH (17:28)
[2022-10-15] MEDS ORDERED: WARFARIN 7.5 MG TAB PO ONE (18:00)
[2022-10-15] MEDS ORDERED: WARFARIN 7.5 MG TAB PO SCH (21:00)
[2022-10-16 01:32] VITALS: RESP 16
[2022-10-16] MEDS: DOFETILIDE 125 MCG CAP PO SCH (05:54)
[2022-10-16] MEDS: SPIRONOLACTONE 25 MG TAB PO SCH (09:26)
[2022-10-16] MEDS: MAGNESIUM OXIDE 400 MG TAB PO SCH (09:26)
[2022-10-16] MEDS: METOPROLOL TARTRATE 50 MG TAB PO SCH (09:26)
[2022-10-16] MEDS: lisinopriL 10 MG TAB PO SCH (09:27)
[2022-10-16 10:03] VITALS: TEMP 97.4
[2022-10-16 11:33] LABS: INR 2.1 (<1.2)
[2022-10-16 11:45] LABS: African American GFR (CKD) >90 (>60 ml/min/1.73 sqM); Anion Gap 5 mmol/L; Blood Urea Nitrogen 18 mg/dL (9-20); Calcium 8.8 mg/dL (8.4-10.2); Carbon Dioxide 29 mmol/L (22-30); Chloride 104 mmol/L (98-107); Glucose 90 mg/dL (74-99); Magnesium 1.9 mg/dL (1.6-2.3); Non-African American GFR(CKD) >90 (>60 ml/min/1.73 sqM); Potassium 4.5 mmol/L (3.5-5.1); Sodium 138 mmol/L (137-145)
[2022-10-16 11:46] VITALS: BP 120/78; PULSE 74
--- NOTE | 2022-10-16 13:59 | P.DS ---
Providers Date of admission: 10/12/22 11:42 Attending physician: Fermín Johnson Primary care physician: Fermín Johnson - Discharge Diagnosis(es) (1) Atrial fibrillation, persistent Current Visit: Yes Status: Resolved Priority: High Hospital Course: Patient is a pleasant 62-year-old male who was brought to the hospital for dofetilide loading. Patient had been complaining of tiredness and fatigue with shortness of breath on exertion despite rate controlled medications. Is also experiencing atrial fibrillation. Dofetilide was initiated, the patient was m onitored. His initial renal function was normal, as well as his absolute QT interval. Patient's currently prescribed medications were continued, and warfarin was continued as well. After dofetilide initiation, the patient underwent electrical cardioversion which was initially successful. Post cardioversion an EKG was completed which showed the patient had an excessively prolonged QT interval almost 520 ms. His dofetilide dose was held at that time. The following day the patient's EKG was repeated which demonstrated a much improved QT interval. Dofetilide was continued at 125 g. Continued EKGs are completed which continued to demonstrate QT intervals within normal limits. Patient's dofetilide was continued at 125 g 2 times a day. Patient had his magnesium replaced as well due to a lower magnesium. Seeing as how they dofetilide dose the patient was started on seem to be adequate for him, dofetilide was sent to the pharmacy and prior off was initiated for the dofetilide. Arrangements were made to use [employer] funds for the first couple weeks of treatment before the prior authorization was completed. Patient had another EKG this morning which continued to demonstrate an appropriate QT interval. Patient was interviewed at the bedside, stating that he felt okay today. He states he somewhat tired, but otherwise denies chest pain, shortness of breath, heart palpitations. Patient is ready for discharge at this time. Assessment: GENERAL: Well-appearing, well-nourished and in no acute distress. NECK: Supple without JVD or thyromegaly. LUNGS: Breath sounds clear to auscultation bilaterally. Respiration equal and unlabored. No wheezes, rales or rhonchi. HEART: Regular rate and rhythm without murmurs, rubs or gallops. S1 and S2 heard. EXTREMITIES: Normal range of motion, no edema. No clubbing or cyanosis. Peripheral pulses intact and strong. VITALS: Temp 97.4, pulse 72, respirations 16, blood pressure 122/64, O2 saturation 97% o n room air TELEMETRY: Normal sinus rhythm LABS: Sodium 138, potassium 4.8, chloride 104, B1 19, creatinine 0.95, calcium 8.8, magnesium 1.7 Patient Condition at Discharge: Good Plan - Discharge Summary Discharge Rx Participant: No New Discharge Prescriptions: New Dofetilide [Tikosyn] 125 mcg PO Q12HR #180 cap Magnesium Oxide 400 mg PO DAILY #30 tablet Dofetilide [Tikosyn] 125 mcg PO Q12HR #14 cap No Action Warfarin [Coumadin] 10 mg PO SUTUWETHSA@2100 lisinopriL [Zestril] 10 mg PO BID Warfarin [Coumadin] 7.5 mg PO MOFR@2099 Metoprolol Tartrate [Lopressor] 75 mg PO BID Spironolactone [Aldactone] 25 mg PO HS Discharge Medication List Warfarin [Coumadin] 10 mg PO SUTUWETHSA@2100 10/23/20 [History] lisinopriL [Zestril] 10 mg PO BID 10/23/20 [History] Metoprolol Tartrate [Lopressor] 75 mg PO BID 10/12/22 [History] Spironolactone [Aldactone] 25 mg PO HS 10/12/22 [History] Warfarin [Coumadin] 7.5 mg PO MOFR@2100 10/12/22 [History] Dofetilide [Tikosyn] 125 mcg PO Q12HR #14 cap 10/15/22 [Rx] Dofetilide [Tikosyn] 125 mcg PO Q12HR #180 cap 10/15/22 [Rx] Magnesium Oxide 400 mg PO DAILY #30 tablet 10/16/22 [Rx] Follow up Appointment(s)/Referral(s): Fermín Johnson MD [Primary Care Provider] - 1 Week Patient Instructions/Handouts: Dofetilide (By mouth), A-fib (Atrial Fibrillation) (IP) Activity/Diet/Wound Care/Special Instructions: Activity as tolerated Cardiac diet Discharge Disposition: HOME SELF-CARE
[2022-10-16] MEDS ORDERED: WARFARIN 10 MG TAB PO ONE (18:00)
== END 2022-10-16 15:34 | disposition home or self-care (01) | DRG 310 ==
LOC: 3SCARD 11:42
PROVIDERS: ADMIT Internal Medicine Clinical Cardiac Electrophysiology; ATTEND Internal Medicine Clinical Cardiac Electrophysiology
DX: I48.19 Other persistent atrial fibrillation (principal); I11.0 Hypertensive heart disease with heart failure; I34.0 Nonrheumatic mitral (valve) insufficiency; I42.9 Cardiomyopathy, unspecified; I50.9 Heart failure, unspecified; Z79.01 Long term (current) use of anticoagulants; Z79.899 Other long term (current) drug therapy; Z87.891 Personal history of nicotine dependence; Z28.310 Unvaccinated for COVID-19; Z28.21 Immunization not carried out because of patient refusal
CPT/HCPCS: 80048; 83735; 84443; 85610; 92960